=== PATIENT | female | born 1955 | race Two or more races ===

== ENCOUNTER 2021-12-15 17:21 | Inpatient (IN) | payer MEDICARE ==
[~2021-12-15] VITALS: Ht 149.9 cm; Wt 50.8 kg
[2021-12-15 19:01] LABS: BASOPHILS % (AUTO) 0.4 % (0.0-2.0); EOSINOPHILS % (AUTO) 0.3 % (1.0-6.0); HEMATOCRIT 32.9 % (36-46); HEMOGLOBIN 10.9 g/dL (12.0-16.0); LYMPHOCYTES # (AUTO) 1.2 K/uL (1.0-4.8); LYMPHOCYTES % (AUTO) 9.5 % (22.0-44.0); MEAN CORPUSCULAR HEMOGLOBIN 30.5 pg (26.0-34.0); MEAN CORPUSCULAR HGB CONC 33.3 G/dL (31.0-37.0); MEAN CORPUSCULAR VOLUME 92 fL (80-100); MONOCYTES # (AUTO) 0.5 K/uL (0.1-1.0); MONOCYTES % (AUTO) 4.3 % (2.0-9.0); NEUTROPHILS # (AUTO) 10.6 K/uL (1.8-7.7); PLATELET COUNT (AUTO) 374 K/uL (150-450); RED BLOOD CELL COUNT(AUTO) 3.58 MIL/uL (4.00-5.20); RED CELL DISTRIBUTION WIDTH 14.2 % (11.5-14.5)
[2021-12-15 19:03] LABS: NEUTROPHILS % (AUTO) 85.5 % (40.0-70.0)
[2021-12-15 19:18] LABS: ALANINE AMINOTRANSFERASE 16 U/L (12-78); ALBUMIN 1.9 g/dL (3.4-5.0); ALKALINE PHOSPHATASE 122 U/L (46-116); ASPARTATE AMINOTRANSFERASE 41 U/L (15-37); BILIRUBIN,TOTAL 0.7 mg/dL (0.1-1.0); CALCIUM, TOTAL 8.7 mg/dL (8.8-10.5); CARBON DIOXIDE 25 mmol/L (22-29); CREATININE 1.02 mg/dL (0.60-1.30); LIPASE 77 U/L (73-393); TOTAL PROTEIN, SERUM 7.9 g/dL (6.4-8.2); UREA NITROGEN, BLOOD 28 mg/dL (7-18)
[2021-12-15 19:31] LABS: ANION GAP 9 mmol/L (8-16); CHLORIDE 90 mmol/L (98-107)
[2021-12-15 19:38] LABS: SODIUM SERUM 124 mmol/L (136-145)
[2021-12-15 19:39] LABS: GLOMERULAR FILTR. RATE CALC 54 mL/min (>60); GLUCOSE,RANDOM 448 mg/dL (70-110); POTASSIUM 2.3 mmol/L (3.5-5.1)
[2021-12-15] MEDS ORDERED: POTASSIUM CHL 10 MEQ/WATER 50 ML IV ONE (20:00)
[2021-12-15] MEDS ORDERED: SODIUM CHLORIDE 0.9% 1,000 ML IV ONE (20:00)
[2021-12-15] MEDS ORDERED: POTASSIUM CHLORIDE 10% 40 MEQ/30 ML LIQUID UDCUP PO ONE (20:00)
[2021-12-15] MEDS ORDERED: CefTRIAXone 1 GM/DEXTROSE 50 ML IV ONE (20:15)
[2021-12-15 20:22] LABS: LACTIC ACID 2.1 mmol/L (0.4-2.0)
[2021-12-15 22:54] LABS: ABG BASE EXCESS -4.1 mmol/L (-2.0-3.0); ABG CARBOXYHEMOGLOBIN 0.4 % (0.0-1.5); ABG HCO3 21.7 mmol/L (22.0-26.0); ABG METHEMOGLOBIN 0.3 % (0.0-1.5); ABG OXYGEN CONTENT 13.6 mL/dL (15.0-23.0); ABG OXYGEN SATURATION 96.5 % (95.0-98.0); ABG OXYHEMOGLOBIN 95.8 % (94.0-100.0); ABG PCO2 31 mmHg (35-45); ABG PH 7.436 (7.35-7.450); PO2, ARTERIAL BG 84.6 mmHg (79.0-87.0); SOURCE, BLOOD GAS ARTERIAL; TEMPERATURE, FAHRENHEIT, BG 98.6 FAHREN (96.0-98.6)
[2021-12-15 22:55] LABS: ABG A-A DIFF O2 28.5 mmHg (10-20.0); O2 DEVICE,BLOOD GAS ROOM AIR (ROOM AIR); SITE, BLOOD GAS RT RADIAL
[2021-12-16] MEDS ORDERED: INSULIN GLARGINE,HUM.REC.ANLOG 100 UNITS/ML SQ ONE
[2021-12-16] MEDS ORDERED: MAGNESIUM OXIDE 400 MG TABLET PO PRN
[2021-12-16] MEDS ORDERED: ZOLPIDEM TARTRATE 5 MG TABLET PO PRN
[2021-12-16] MEDS ORDERED: BISACODYL 10 MG RECTAL RECTAL SUPPOSITORY PR PRN
[2021-12-16] MEDS ORDERED: MORPHINE SULFATE 2 MG/ML SYRINGE IVP PRN
[2021-12-16] MEDS ORDERED: HYDROCODONE/ACETAMINOPHEN 5-325 MG TABLET PO PRN
[2021-12-16] MEDS ORDERED: ALBUTEROL SULFATE 2.5 MG/0.5 ML NEB SOLUTION NEB PRN
[2021-12-16] MEDS ORDERED: MAGNESIUM SULFATE 2 GM/WATER 50 ML IV PRN
[2021-12-16] MEDS ORDERED: DEXTROSE 50%-WATER 25 GM/50 ML SYRINGE IVP PRN
[2021-12-16] MEDS ORDERED: MAGNESIUM HYDROXIDE SUSPENSION 30 ML UDCUP PO PRN
[2021-12-16] MEDS ORDERED: IPRATROPIUM BROMIDE 0.5 MG/2.5 ML NEB SOLUTION NEB PRN
[2021-12-16] MEDS ORDERED: MAGNESIUM SULFATE 4 GM/WATER 100 ML IV PRN
[2021-12-16] MEDS ORDERED: ONDANSETRON HCL 4 MG/2 ML VIAL IVP PRN
[2021-12-16] MEDS ORDERED: SODIUM CHLORIDE 0.9% 100 ML ONE (00:03)
[2021-12-16] MEDS ORDERED: IOHEXOL 350 MG/ML 100 ML VIAL ONE (00:03)
[2021-12-16 00:11] LABS: GLUCOSE,POINT OF CARE 436 MG/DL (70-110)
[2021-12-16 00:19] LABS: HEMOGLOBIN A1C 12.4 % (3.8-5.6)
[2021-12-16] MEDS: INSULIN LISPRO 100 UNITS/ML SQ PRN ×5 (00:32→22:23)
[2021-12-16 00:50] LABS: ALBUMIN 1.9 g/dL (3.4-5.0)
[2021-12-16] MEDS: HEPARIN SODIUM,PORCINE 5,000 UNITS/ML VIAL SQ SCH ×4 (01:00→23:24)
[2021-12-16 04:31] LABS: GLUCOMETER DEV NAME(LOC) ERT.5; GLUCOSE,POINT OF CARE 147 MG/DL (70-110)
[2021-12-16 06:07] LABS: GLUCOMETER DEV NAME(LOC) ERT.5; GLUCOSE,POINT OF CARE 147 MG/DL (70-110)
[2021-12-16] MEDS: PANTOPRAZOLE SODIUM 40 MG DR TABLET PO SCH (07:57)
[2021-12-16 08:01] LABS: ANION GAP 10 mmol/L (8-16); CALCIUM, TOTAL 7.8 mg/dL (8.8-10.5); CARBON DIOXIDE 26 mmol/L (22-29); CHLORIDE 96 mmol/L (98-107); CREATININE 0.75 mg/dL (0.60-1.30); GLUCOSE,RANDOM 177 mg/dL (70-110); SODIUM SERUM 132 mmol/L (136-145); UREA NITROGEN, BLOOD 25 mg/dL (7-18)
[2021-12-16 08:03] LABS: GLOMERULAR FILTR. RATE CALC > 60 mL/min (>60); POTASSIUM 2.2 mmol/L (3.5-5.1)
[2021-12-16] MEDS: POTASSIUM CHL 10 MEQ/WATER 50 ML IV PRN ×4 (08:08→10:58)
[2021-12-16] MEDS ORDERED: POTASSIUM CHLORIDE 20 MEQ ER TABLET PO ONE (11:45)
[2021-12-16 12:21] LABS: GLUCOSE,POINT OF CARE 191 MG/DL (70-110)
[2021-12-16 15:56] LABS: ANION GAP 9 mmol/L (8-16); CALCIUM, TOTAL 7.6 mg/dL (8.8-10.5); CARBON DIOXIDE 22 mmol/L (22-29); CHLORIDE 101 mmol/L (98-107); CREATININE 0.71 mg/dL (0.60-1.30); GLOMERULAR FILTR. RATE CALC > 60 mL/min (>60); GLUCOSE,RANDOM 190 mg/dL (70-110); SODIUM SERUM 132 mmol/L (136-145); UREA NITROGEN, BLOOD 18 mg/dL (7-18)
[2021-12-16 21:54] VITALS: BP 103/48
[2021-12-16] MEDS: POTASSIUM CHLORIDE 20 MEQ ER TABLET PO PRN (21:58)
[2021-12-16 22:55] LABS: APPEARANCE,URINE HAZY (CLEAR); BILIRUBIN,URINE NEGATIVE (NEGATIVE); GLUCOSE, URINE (UA) 150-200 mg/dL (NEGATIVE); KETONES,URINE TRACE mg/dL (NEGATIVE); LEUKOCYTE ESTERASE ,URINE LARGE (NEGATIVE); NITRATE,URINE NEGATIVE (NEGATIVE); OCCULT BLOOD,URINE TRACE (NEGATIVE); PH,URINE 5.5 (5.0-8.0); PROTEIN,URINE 30-70 mg/dL (NEGATIVE); UROBILINOGEN,URINE <=1.0 mg/dL (<=1.0)
[2021-12-16 23:38] VITALS: BP 100/50
[2021-12-16 23:49] LABS: SQUAMOUS EPITHELIAL CELL,UR Few /LPF (None Seen)
[2021-12-16 23:50] LABS: BACTERIA,URINE Few /HPF (None Seen); RBC,URINE 0-2 /HPF (0-2); WBC,URINE 26-50 /HPF (0-5)
[2021-12-17 03:36] VITALS: BP 118/51
[2021-12-17] MEDS: INSULIN LISPRO 100 UNITS/ML SQ PRN ×4 (06:13→20:21)
[2021-12-17 07:19] LABS: BASOPHILS % (AUTO) 0.5 % (0.0-2.0); HEMOGLOBIN 8.8 g/dL (12.0-16.0); LYMPHOCYTES # (AUTO) 1.7 K/uL (1.0-4.8); LYMPHOCYTES % (AUTO) 13.8 % (22.0-44.0); MEAN CORPUSCULAR HEMOGLOBIN 29.8 pg (26.0-34.0); MEAN CORPUSCULAR HGB CONC 32.8 G/dL (31.0-37.0); MEAN CORPUSCULAR VOLUME 91 fL (80-100); MONOCYTES # (AUTO) 0.5 K/uL (0.1-1.0); MONOCYTES % (AUTO) 4.5 % (2.0-9.0); NEUTROPHILS # (AUTO) 9.7 K/uL (1.8-7.7); NEUTROPHILS % (AUTO) 80.2 % (40.0-70.0); PLATELET COUNT (AUTO) 318 K/uL (150-450); RED BLOOD CELL COUNT(AUTO) 2.97 MIL/uL (4.00-5.20); RED CELL DISTRIBUTION WIDTH 14.3 % (11.5-14.5)
[2021-12-17 07:38] LABS: ALANINE AMINOTRANSFERASE 21 U/L (12-78); ALBUMIN 1.5 g/dL (3.4-5.0); ALKALINE PHOSPHATASE 86 U/L (46-116); ANION GAP 11 mmol/L (8-16); ASPARTATE AMINOTRANSFERASE 38 U/L (15-37); BILIRUBIN,TOTAL 0.4 mg/dL (0.1-1.0); CALCIUM, TOTAL 7.6 mg/dL (8.8-10.5); CARBON DIOXIDE 22 mmol/L (22-29); CHLORIDE 102 mmol/L (98-107); CREATININE 0.73 mg/dL (0.60-1.30); GLUCOSE,RANDOM 180 mg/dL (70-110); SODIUM SERUM 135 mmol/L (136-145); TOTAL PROTEIN, SERUM 6.2 g/dL (6.4-8.2); UREA NITROGEN, BLOOD 16 mg/dL (7-18)
[2021-12-17 07:40] LABS: GLOMERULAR FILTR. RATE CALC > 60 mL/min (>60); POTASSIUM 2.8 mmol/L (3.5-5.1)
[2021-12-17 08:00] VITALS: BP 101/45
[2021-12-17] MEDS: PANTOPRAZOLE SODIUM 40 MG DR TABLET PO SCH (09:05)
[2021-12-17] MEDS: HEPARIN SODIUM,PORCINE 5,000 UNITS/ML VIAL SQ SCH ×3 (09:06→23:58)
[2021-12-17] MEDS: ACETAMINOPHEN 325 MG TABLET PO PRN ×2 (09:06→17:53)
[2021-12-17] MEDS: POTASSIUM CHL 10 MEQ/WATER 50 ML IV PRN (09:07)
[2021-12-17 11:05] VITALS: BP 102/52
[2021-12-17] MEDS ORDERED: POTASSIUM CHLORIDE 20 MEQ ER TABLET PO ONE (12:00)
[2021-12-17 12:49] LABS: GLUCOMETER DEV NAME(LOC) 5S.1B; GLUCOSE,POINT OF CARE 150 MG/DL (70-110)
[2021-12-17 15:43] VITALS: BP 105/58
[2021-12-17 20:30] VITALS: BP 98/49
[2021-12-18 00:27] VITALS: BP 118/52
[2021-12-18] MEDS ORDERED: CefTRIAXone 1 GM/DEXTROSE 50 ML IV SCH (00:30)
[2021-12-18 04:15] VITALS: BP 105/53
[2021-12-18] MEDS: INSULIN LISPRO 100 UNITS/ML SQ PRN ×4 (06:20→21:04)
[2021-12-18 06:54] LABS: BASOPHILS % (AUTO) 0.3 % (0.0-2.0); EOSINOPHILS % (AUTO) 0.2 % (1.0-6.0); LYMPHOCYTES # (AUTO) 1.2 K/uL (1.0-4.8); LYMPHOCYTES % (AUTO) 8.4 % (22.0-44.0); MEAN CORPUSCULAR HEMOGLOBIN 29.8 pg (26.0-34.0); MEAN CORPUSCULAR HGB CONC 32.2 G/dL (31.0-37.0); MEAN CORPUSCULAR VOLUME 93 fL (80-100); MONOCYTES # (AUTO) 0.4 K/uL (0.1-1.0); MONOCYTES % (AUTO) 2.6 % (2.0-9.0); NEUTROPHILS # (AUTO) 12.6 K/uL (1.8-7.7); PLATELET COUNT (AUTO) 391 K/uL (150-450); RED BLOOD CELL COUNT(AUTO) 3.36 MIL/uL (4.00-5.20); RED CELL DISTRIBUTION WIDTH 14.6 % (11.5-14.5)
[2021-12-18 07:23] LABS: NEUTROPHILS % (AUTO) 88.5 % (40.0-70.0)
[2021-12-18 07:29] LABS: ALANINE AMINOTRANSFERASE 16 U/L (12-78); ALBUMIN 1.6 g/dL (3.4-5.0); ALKALINE PHOSPHATASE 101 U/L (46-116); ANION GAP 8 mmol/L (8-16); ASPARTATE AMINOTRANSFERASE 30 U/L (15-37); BILIRUBIN,TOTAL 0.3 mg/dL (0.1-1.0); CALCIUM, TOTAL 7.9 mg/dL (8.8-10.5); CARBON DIOXIDE 24 mmol/L (22-29); CHLORIDE 102 mmol/L (98-107); CREATININE 0.75 mg/dL (0.60-1.30); GLUCOSE,RANDOM 236 mg/dL (70-110); POTASSIUM 3.6 mmol/L (3.5-5.1); SODIUM SERUM 134 mmol/L (136-145); TOTAL PROTEIN, SERUM 6.8 g/dL (6.4-8.2); UREA NITROGEN, BLOOD 10 mg/dL (7-18)
[2021-12-18 07:35] LABS: GLOMERULAR FILTR. RATE CALC > 60 mL/min (>60)
[2021-12-18 07:45] VITALS: BP 104/55
[2021-12-18] MEDS: PANTOPRAZOLE SODIUM 40 MG DR TABLET PO SCH (08:14)
[2021-12-18] MEDS: HEPARIN SODIUM,PORCINE 5,000 UNITS/ML VIAL SQ SCH ×3 (08:14→23:44)
[2021-12-18 11:08] VITALS: BP 108/44
[2021-12-18 15:33] VITALS: BP 129/48
[2021-12-18 17:24] LABS: GLUCOMETER DEV NAME(LOC) 5N.1C; GLUCOSE,POINT OF CARE 188 MG/DL (70-110)
[2021-12-18 17:24] LABS: GLUCOMETER DEV NAME(LOC) 5N.1C; GLUCOSE,POINT OF CARE 281 MG/DL (70-110)
[2021-12-18 17:25] LABS: GLUCOMETER DEV NAME(LOC) 5N.1C; GLUCOSE,POINT OF CARE 218 MG/DL (70-110)
[2021-12-18 20:35] VITALS: BP 97/54
[2021-12-18] MEDS: PIPERACILLIN/TAZO 3.375 GM/D5W 50 ML IV SCH (23:15)
[2021-12-19] MEDS ORDERED: VANCOMYCIN HCL 1 GM in DEXTROSE 5%-WATER 250 ML IV ONE ×2
[2021-12-19 00:25] VITALS: BP 101/54
[2021-12-19] MEDS: PIPERACILLIN/TAZO 3.375 GM/D5W 50 ML IV SCH ×4 (04:43→22:34)
[2021-12-19] MEDS: INSULIN LISPRO 100 UNITS/ML SQ PRN ×4 (06:24→21:27)
[2021-12-19 07:25] LABS: BASOPHILS % (AUTO) 0.2 % (0.0-2.0); EOSINOPHILS % (AUTO) 1.1 % (1.0-6.0); HEMOGLOBIN 9.3 g/dL (12.0-16.0); LYMPHOCYTES # (AUTO) 1.7 K/uL (1.0-4.8); LYMPHOCYTES % (AUTO) 18.2 % (22.0-44.0); MEAN CORPUSCULAR HEMOGLOBIN 30.7 pg (26.0-34.0); MEAN CORPUSCULAR HGB CONC 33.4 G/dL (31.0-37.0); MEAN CORPUSCULAR VOLUME 92 fL (80-100); MONOCYTES # (AUTO) 0.5 K/uL (0.1-1.0); NEUTROPHILS # (AUTO) 7.3 K/uL (1.8-7.7); NEUTROPHILS % (AUTO) 75.5 % (40.0-70.0); PLATELET COUNT (AUTO) 323 K/uL (150-450); RED BLOOD CELL COUNT(AUTO) 3.04 MIL/uL (4.00-5.20); RED CELL DISTRIBUTION WIDTH 14.8 % (11.5-14.5)
[2021-12-19 08:00] VITALS: BP 98/45
[2021-12-19 08:05] LABS: ALANINE AMINOTRANSFERASE 15 U/L (12-78); ALBUMIN 1.5 g/dL (3.4-5.0); ALKALINE PHOSPHATASE 86 U/L (46-116); ANION GAP 9 mmol/L (8-16); ASPARTATE AMINOTRANSFERASE 21 U/L (15-37); BILIRUBIN,TOTAL 0.4 mg/dL (0.1-1.0); CALCIUM, TOTAL 7.8 mg/dL (8.8-10.5); CARBON DIOXIDE 24 mmol/L (22-29); CHLORIDE 102 mmol/L (98-107); CREATININE 0.74 mg/dL (0.60-1.30); GLUCOSE,RANDOM 177 mg/dL (70-110); POTASSIUM 3.5 mmol/L (3.5-5.1); SODIUM SERUM 135 mmol/L (136-145); TOTAL PROTEIN, SERUM 6.4 g/dL (6.4-8.2); UREA NITROGEN, BLOOD 8 mg/dL (7-18)
[2021-12-19 08:06] LABS: GLOMERULAR FILTR. RATE CALC > 60 mL/min (>60)
[2021-12-19] MEDS: PANTOPRAZOLE SODIUM 40 MG DR TABLET PO SCH (08:33)
[2021-12-19] MEDS: HEPARIN SODIUM,PORCINE 5,000 UNITS/ML VIAL SQ SCH ×2 (08:33→17:40)
[2021-12-19] MEDS: VANCOMYCIN HCL 750 MG in DEXTROSE 5%-WATER 250 ML IV SCH ×2 (08:34→21:01)
[2021-12-19 12:01] VITALS: BP 107/53
[2021-12-19 16:14] VITALS: BP 120/52
[2021-12-19 20:54] VITALS: BP 109/57
[2021-12-20] MEDS: HEPARIN SODIUM,PORCINE 5,000 UNITS/ML VIAL SQ SCH ×4 (00:03→23:31)
[2021-12-20 00:49] VITALS: BP 94/58
[2021-12-20] MEDS: PIPERACILLIN/TAZO 3.375 GM/D5W 50 ML IV SCH ×4 (05:15→23:33)
[2021-12-20] MEDS ORDERED: SODIUM CHLORIDE 0.9% 500 ML IV ONE (05:24)
[2021-12-20 05:34] LABS: GLUCOMETER DEV NAME(LOC) 5N.3; GLUCOSE,POINT OF CARE 218 MG/DL (70-110)
[2021-12-20 05:34] LABS: GLUCOMETER DEV NAME(LOC) 5N.3; GLUCOSE,POINT OF CARE 232 MG/DL (70-110)
[2021-12-20 05:35] LABS: GLUCOMETER DEV NAME(LOC) 5S.2B; GLUCOSE,POINT OF CARE 235 MG/DL (70-110)
[2021-12-20 05:35] LABS: GLUCOMETER DEV NAME(LOC) 5S.2B; GLUCOSE,POINT OF CARE 283 MG/DL (70-110)
[2021-12-20 05:35] LABS: GLUCOMETER DEV NAME(LOC) 5S.2B; GLUCOSE,POINT OF CARE 213 MG/DL (70-110)
[2021-12-20 05:36] LABS: GLUCOMETER DEV NAME(LOC) 5S.2B; GLUCOSE,POINT OF CARE 179 MG/DL (70-110)
[2021-12-20 05:36] LABS: GLUCOMETER DEV NAME(LOC) 5S.2B; GLUCOSE,POINT OF CARE 324 MG/DL (70-110)
[2021-12-20 05:36] LABS: GLUCOMETER DEV NAME(LOC) 5S.2B; GLUCOSE,POINT OF CARE 270 MG/DL (70-110)
[2021-12-20 06:03] VITALS: BP 108/49
[2021-12-20 06:27] LABS: GLUCOMETER DEV NAME(LOC) 5S.1B; GLUCOSE,POINT OF CARE 214 MG/DL (70-110)
[2021-12-20 06:27] LABS: GLUCOMETER DEV NAME(LOC) 5S.1B; GLUCOSE,POINT OF CARE 222 MG/DL (70-110)
[2021-12-20 07:12] LABS: BASOPHILS % (AUTO) 0.3 % (0.0-2.0); EOSINOPHILS % (AUTO) 1.3 % (1.0-6.0); HEMATOCRIT 27.8 % (36-46); HEMOGLOBIN 9.2 g/dL (12.0-16.0); LYMPHOCYTES # (AUTO) 1.6 K/uL (1.0-4.8); LYMPHOCYTES % (AUTO) 18.8 % (22.0-44.0); MEAN CORPUSCULAR HEMOGLOBIN 30.7 pg (26.0-34.0); MEAN CORPUSCULAR HGB CONC 33.3 G/dL (31.0-37.0); MEAN CORPUSCULAR VOLUME 92 fL (80-100); MONOCYTES # (AUTO) 0.4 K/uL (0.1-1.0); NEUTROPHILS # (AUTO) 6.5 K/uL (1.8-7.7); NEUTROPHILS % (AUTO) 74.6 % (40.0-70.0); PLATELET COUNT (AUTO) 284 K/uL (150-450); RED BLOOD CELL COUNT(AUTO) 3.01 MIL/uL (4.00-5.20); RED CELL DISTRIBUTION WIDTH 14.5 % (11.5-14.5)
[2021-12-20 07:56] LABS: ALANINE AMINOTRANSFERASE 12 U/L (12-78); ALBUMIN 1.5 g/dL (3.4-5.0); ALKALINE PHOSPHATASE 76 U/L (46-116); ANION GAP 9 mmol/L (8-16); ASPARTATE AMINOTRANSFERASE 19 U/L (15-37); BILIRUBIN,TOTAL 0.4 mg/dL (0.1-1.0); CALCIUM, TOTAL 7.6 mg/dL (8.8-10.5); CARBON DIOXIDE 24 mmol/L (22-29); CHLORIDE 99 mmol/L (98-107); CREATINE KINASE, TOTAL ONLY 22 U/L (26-192); CREATININE 0.89 mg/dL (0.60-1.30); GLOMERULAR FILTR. RATE CALC > 60 mL/min (>60); GLUCOSE,RANDOM 201 mg/dL (70-110); POTASSIUM 3.3 mmol/L (3.5-5.1); SODIUM SERUM 132 mmol/L (136-145); TOTAL PROTEIN, SERUM 6.5 g/dL (6.4-8.2); UREA NITROGEN, BLOOD 9 mg/dL (7-18); VANCOMYCIN,RANDOM 24.7 mcg/mL (25.0-50.0)
[2021-12-20] MEDS: VANCOMYCIN HCL 750 MG in DEXTROSE 5%-WATER 250 ML IV SCH ×2 (08:23→20:47)
[2021-12-20] MEDS: PANTOPRAZOLE SODIUM 40 MG DR TABLET PO SCH (08:23)
[2021-12-20] MEDS: POTASSIUM CHLORIDE 20 MEQ ER TABLET PO PRN (08:24)
[2021-12-20] MEDS: INSULIN GLARGINE,HUM.REC.ANLOG 100 UNITS/ML SQ SCH (08:27)
[2021-12-20 08:48] VITALS: BP 105/52
[2021-12-20] MEDS: INSULIN LISPRO 100 UNITS/ML SQ PRN ×3 (11:55→20:58)
[2021-12-20 12:00] VITALS: BP 110/52
[2021-12-20 16:40] VITALS: BP 105/56
[2021-12-20 19:21] LABS: GLUCOMETER DEV NAME(LOC) 5S.2B; GLUCOSE,POINT OF CARE 285 MG/DL (70-110)
[2021-12-20 20:48] VITALS: BP 101/48
[2021-12-21] VITALS (8 sets, daily range): BP systolic 74–111; BP diastolic 37–67
[2021-12-21] MEDS: PIPERACILLIN/TAZO 3.375 GM/D5W 50 ML IV SCH ×4 (05:27→23:08)
[2021-12-21 06:50] LABS: BASOPHILS % (AUTO) 0.3 % (0.0-2.0); HEMATOCRIT 28.6 % (36-46); HEMOGLOBIN 9.3 g/dL (12.0-16.0); LYMPHOCYTES # (AUTO) 2.1 K/uL (1.0-4.8); LYMPHOCYTES % (AUTO) 21.3 % (22.0-44.0); MEAN CORPUSCULAR HEMOGLOBIN 30.7 pg (26.0-34.0); MEAN CORPUSCULAR HGB CONC 32.7 G/dL (31.0-37.0); MEAN CORPUSCULAR VOLUME 94 fL (80-100); MONOCYTES # (AUTO) 0.5 K/uL (0.1-1.0); MONOCYTES % (AUTO) 4.9 % (2.0-9.0); NEUTROPHILS # (AUTO) 7.1 K/uL (1.8-7.7); NEUTROPHILS % (AUTO) 72.5 % (40.0-70.0); PLATELET COUNT (AUTO) 316 K/uL (150-450); RED BLOOD CELL COUNT(AUTO) 3.04 MIL/uL (4.00-5.20); RED CELL DISTRIBUTION WIDTH 14.6 % (11.5-14.5)
[2021-12-21 07:06] LABS: GLUCOMETER DEV NAME(LOC) 5S.1B; GLUCOSE,POINT OF CARE 208 MG/DL (70-110)
[2021-12-21 07:07] LABS: GLUCOMETER DEV NAME(LOC) 5S.1B; GLUCOSE,POINT OF CARE 129 MG/DL (70-110)
[2021-12-21 07:07] LABS: GLUCOMETER DEV NAME(LOC) 5S.1B; GLUCOSE,POINT OF CARE 167 MG/DL (70-110)
[2021-12-21 07:14] LABS: ALBUMIN 1.5 g/dL (3.4-5.0); BILIRUBIN,TOTAL 0.6 mg/dL (0.1-1.0); CALCIUM, TOTAL 8.2 mg/dL (8.8-10.5); CREATININE 1.23 mg/dL (0.60-1.30); POTASSIUM 3.8 mmol/L (3.5-5.1); TOTAL PROTEIN, SERUM 6.9 g/dL (6.4-8.2)
[2021-12-21] MEDS: VANCOMYCIN HCL 500 MG in DEXTROSE 5%-WATER 100 ML IV SCH ×2 (08:05→20:47)
[2021-12-21] MEDS: HEPARIN SODIUM,PORCINE 5,000 UNITS/ML VIAL SQ SCH ×2 (08:06→16:09)
[2021-12-21] MEDS: PANTOPRAZOLE SODIUM 40 MG DR TABLET PO SCH (08:06)
[2021-12-21] MEDS: INSULIN GLARGINE,HUM.REC.ANLOG 100 UNITS/ML SQ SCH (08:07)
[2021-12-21] MEDS: INSULIN LISPRO 100 UNITS/ML SQ PRN ×2 (11:50→17:08)
[2021-12-21 12:41] LABS: GLUCOMETER DEV NAME(LOC) 5S.1B; GLUCOSE,POINT OF CARE 243 MG/DL (70-110)
[2021-12-21 17:51] LABS: GLUCOMETER DEV NAME(LOC) 5S.2B; GLUCOSE,POINT OF CARE 175 MG/DL (70-110)
[2021-12-21] MEDS ORDERED: SODIUM CHLORIDE 0.9% 250 ML IV ONE (20:41)
[2021-12-21] MEDS ORDERED: SODIUM CHLORIDE 0.9% 500 ML IV STA (22:00)
[2021-12-21] MEDS ORDERED: CLINDAMYCIN 600 MG/D5% WATER 50 ML IV ONE (22:30)
[2021-12-22] VITALS (7 sets, daily range): BP systolic 93–117; BP diastolic 52–57
[2021-12-22] MEDS: HEPARIN SODIUM,PORCINE 5,000 UNITS/ML VIAL SQ SCH ×4 (00:03→23:27)
[2021-12-22 03:11] LABS: GLUCOMETER DEV NAME(LOC) 5S.1B; GLUCOSE,POINT OF CARE 135 MG/DL (70-110)
[2021-12-22] MEDS: PIPERACILLIN/TAZO 3.375 GM/D5W 50 ML IV SCH (04:33)
[2021-12-22 06:32] LABS: BASOPHILS % (AUTO) 0.5 % (0.0-2.0); HEMATOCRIT 28.4 % (36-46); HEMOGLOBIN 9.3 g/dL (12.0-16.0); LYMPHOCYTES # (AUTO) 1.8 K/uL (1.0-4.8); LYMPHOCYTES % (AUTO) 24.4 % (22.0-44.0); MEAN CORPUSCULAR HEMOGLOBIN 30.7 pg (26.0-34.0); MEAN CORPUSCULAR HGB CONC 32.8 G/dL (31.0-37.0); MEAN CORPUSCULAR VOLUME 94 fL (80-100); MONOCYTES # (AUTO) 0.4 K/uL (0.1-1.0); MONOCYTES % (AUTO) 5.6 % (2.0-9.0); NEUTROPHILS # (AUTO) 5.1 K/uL (1.8-7.7); NEUTROPHILS % (AUTO) 67.5 % (40.0-70.0); PLATELET COUNT (AUTO) 293 K/uL (150-450); RED BLOOD CELL COUNT(AUTO) 3.04 MIL/uL (4.00-5.20); RED CELL DISTRIBUTION WIDTH 15.1 % (11.5-14.5)
[2021-12-22 06:59] LABS: ALBUMIN 1.6 g/dL (3.4-5.0); BILIRUBIN,TOTAL 0.5 mg/dL (0.1-1.0); CREATININE 1.76 mg/dL (0.60-1.30); TOTAL PROTEIN, SERUM 7.1 g/dL (6.4-8.2); VANCOMYCIN,RANDOM 40.2 mcg/mL (25.0-50.0)
[2021-12-22] MEDS: PANTOPRAZOLE SODIUM 40 MG DR TABLET PO SCH (08:17)
[2021-12-22] MEDS: VANCOMYCIN HCL 500 MG in DEXTROSE 5%-WATER 100 ML IV SCH (08:17)
[2021-12-22] MEDS: POTASSIUM CHLORIDE 20 MEQ ER TABLET PO PRN (08:18)
[2021-12-22] MEDS: INSULIN GLARGINE,HUM.REC.ANLOG 100 UNITS/ML SQ SCH (08:27)
[2021-12-22] MEDS ORDERED: VANCOMYCIN 1GM/WATER(PEG/NADA) 200 ML IV PRN (09:30)
[2021-12-22] MEDS: PIPERACILLIN SODIUM/TAZOBACTAM 2.25 GM in DEXTROSE 5%-WATER 50 ML IV SCH ×3 (11:57→23:27)
[2021-12-22] MEDS: INSULIN LISPRO 100 UNITS/ML SQ PRN ×3 (12:18→20:07)
[2021-12-22] MEDS: LACTOBACILLUS ACIDOPHILUS/BULGARICUS GRANULES PACKET PO SCH ×2 (17:06→20:03)
[2021-12-22 17:32] LABS: GLUCOMETER DEV NAME(LOC) 5S.2B; GLUCOSE,POINT OF CARE 184 MG/DL (70-110)
[2021-12-22 17:32] LABS: GLUCOMETER DEV NAME(LOC) 5S.2B; GLUCOSE,POINT OF CARE 204 MG/DL (70-110)
[2021-12-22 20:11] LABS: GLUCOMETER DEV NAME(LOC) 5S.1B; GLUCOSE,POINT OF CARE 108 MG/DL (70-110)
[2021-12-22 20:26] LABS: GLUCOMETER DEV NAME(LOC) 5S.2B; GLUCOSE,POINT OF CARE 169 MG/DL (70-110)
[2021-12-23 03:52] VITALS: BP 103/53
[2021-12-23] MEDS: PIPERACILLIN SODIUM/TAZOBACTAM 2.25 GM in DEXTROSE 5%-WATER 50 ML IV SCH ×4 (05:09→23:37)
[2021-12-23 07:08] LABS: BASOPHILS % (AUTO) 0.3 % (0.0-2.0); HEMATOCRIT 29.7 % (36-46); HEMOGLOBIN 9.8 g/dL (12.0-16.0); LYMPHOCYTES # (AUTO) 2.2 K/uL (1.0-4.8); LYMPHOCYTES % (AUTO) 26.5 % (22.0-44.0); MEAN CORPUSCULAR HEMOGLOBIN 30.8 pg (26.0-34.0); MEAN CORPUSCULAR HGB CONC 32.9 G/dL (31.0-37.0); MEAN CORPUSCULAR VOLUME 94 fL (80-100); MONOCYTES # (AUTO) 0.5 K/uL (0.1-1.0); MONOCYTES % (AUTO) 5.9 % (2.0-9.0); NEUTROPHILS # (AUTO) 5.4 K/uL (1.8-7.7); NEUTROPHILS % (AUTO) 66.3 % (40.0-70.0); PLATELET COUNT (AUTO) 303 K/uL (150-450); RED BLOOD CELL COUNT(AUTO) 3.17 MIL/uL (4.00-5.20)
[2021-12-23 07:23] VITALS: BP 122/52
[2021-12-23 07:33] LABS: ALBUMIN 1.7 g/dL (3.4-5.0); BILIRUBIN,TOTAL 0.4 mg/dL (0.1-1.0); CALCIUM, TOTAL 8.4 mg/dL (8.8-10.5); CREATININE 1.76 mg/dL (0.60-1.30); POTASSIUM 3.8 mmol/L (3.5-5.1); TOTAL PROTEIN, SERUM 7.2 g/dL (6.4-8.2)
[2021-12-23 07:35] LABS: COVID AG,FIA SOURCE NASAL SWAB
[2021-12-23] MEDS: HEPARIN SODIUM,PORCINE 5,000 UNITS/ML VIAL SQ SCH ×3 (08:00→23:39)
[2021-12-23] MEDS: LACTOBACILLUS ACIDOPHILUS/BULGARICUS GRANULES PACKET PO SCH ×3 (08:05→21:03)
[2021-12-23] MEDS: PANTOPRAZOLE SODIUM 40 MG DR TABLET PO SCH (08:06)
[2021-12-23] MEDS: INSULIN GLARGINE,HUM.REC.ANLOG 100 UNITS/ML SQ SCH (08:09)
[2021-12-23] MEDS ORDERED: SODIUM CL IRRIG SOLN BAG 3,000 ML IRRIG ONE (08:14)
[2021-12-23] MEDS ORDERED: VANCOMYCIN HCL 1 GM/VIAL ONE ×2 (08:14→09:34)
[2021-12-23] MEDS ORDERED: SODIUM CHLORIDE 0.9% 1,000 ML ONE (08:38)
[2021-12-23] MEDS ORDERED: HYDROmorphone HCL 2 MG/ML SYRINGE IVP PRN (09:15)
[2021-12-23] MEDS ORDERED: SODIUM CL IRRIG SOLN BAG 6,000 ML IRRIG ONE (09:34)
[2021-12-23] MEDS ORDERED: SUGAMMADEX SODIUM 200 MG/2 ML VIAL IVP ONE (09:49)
[2021-12-23] MEDS ORDERED: FentaNYL CITRATE PF 100 MCG/2 ML VIAL ONE (10:09)
[2021-12-23] MEDS: FentaNYL CITRATE PF 100 MCG/2 ML VIAL IVP PRN ×2 (10:15→10:25)
[2021-12-23 10:55] VITALS: BP 126/56
[2021-12-23] MEDS ORDERED: LIDOCAINE/PF 2% 5 ML VIAL IM ONE (12:00)
[2021-12-23] MEDS ORDERED: DEXAMETHASONE SOD PHOS 4 MG/ML VIAL IVP ONE (12:00)
[2021-12-23] MEDS ORDERED: PROPOFOL 1% 20 ML VIAL IVP ONE (12:00)
[2021-12-23] MEDS ORDERED: ONDANSETRON HCL 4 MG/2 ML VIAL IVP ONE (12:00)
[2021-12-23] MEDS ORDERED: ROCURONIUM BROMIDE 10 MG/ML 5 ML VIAL IVP ONE (12:00)
[2021-12-23 13:31] LABS: GLUCOMETER DEV NAME(LOC) 6N.2B; GLUCOSE,POINT OF CARE 119 MG/DL (70-110)
[2021-12-23 14:58] LABS: VANCOMYCIN,RANDOM 35.7 mcg/mL (25.0-50.0)
[2021-12-23 15:24] VITALS: BP 122/58
[2021-12-23 17:51] LABS: GLUCOMETER DEV NAME(LOC) 5S.2B; GLUCOSE,POINT OF CARE 79 MG/DL (70-110)
[2021-12-23 19:40] VITALS: BP 119/62
[2021-12-23] MEDS: ACETAMINOPHEN 325 MG TABLET PO PRN (19:58)
[2021-12-23] MEDS: OXYGEN THERAPY IH SCH (20:00)
[2021-12-23] MEDS: INSULIN LISPRO 100 UNITS/ML SQ PRN (20:03)
[2021-12-23 20:21] LABS: GLUCOMETER DEV NAME(LOC) 6N.2B; GLUCOSE,POINT OF CARE 254 MG/DL (70-110)
[2021-12-23 23:21] LABS: GLUCOMETER DEV NAME(LOC) 6N.1; GLUCOSE,POINT OF CARE 146 MG/DL (70-110)
[2021-12-24 04:07] VITALS: BP 109/56
[2021-12-24] MEDS: PIPERACILLIN SODIUM/TAZOBACTAM 2.25 GM in DEXTROSE 5%-WATER 50 ML IV SCH ×4 (04:47→23:32)
[2021-12-24 06:20] LABS: GLUCOMETER DEV NAME(LOC) 6N.1; GLUCOSE,POINT OF CARE 124 MG/DL (70-110)
[2021-12-24 07:13] LABS: CALCIUM, TOTAL 7.7 mg/dL (8.8-10.5); CREATININE 1.72 mg/dL (0.60-1.30); POTASSIUM 4.7 mmol/L (3.5-5.1); VANCOMYCIN,RANDOM 25.4 mcg/mL (25.0-50.0)
[2021-12-24 07:54] VITALS: BP 135/63
[2021-12-24] MEDS: LACTOBACILLUS ACIDOPHILUS/BULGARICUS GRANULES PACKET PO SCH ×3 (08:25→20:01)
[2021-12-24] MEDS: PANTOPRAZOLE SODIUM 40 MG DR TABLET PO SCH (08:26)
[2021-12-24] MEDS: HEPARIN SODIUM,PORCINE 5,000 UNITS/ML VIAL SQ SCH ×3 (08:26→23:32)
[2021-12-24] MEDS: INSULIN GLARGINE,HUM.REC.ANLOG 100 UNITS/ML SQ SCH (08:37)
[2021-12-24] MEDS: INSULIN LISPRO 100 UNITS/ML SQ PRN ×2 (11:22→20:02)
[2021-12-24 11:31] LABS: GLUCOMETER DEV NAME(LOC) 6N.1; GLUCOSE,POINT OF CARE 167 MG/DL (70-110)
[2021-12-24 15:20] VITALS: BP 98/49
[2021-12-24] MEDS ORDERED: SODIUM CHLORIDE 0.9% 1,000 ML ONE (17:30)
[2021-12-24 20:06] LABS: GLUCOMETER DEV NAME(LOC) 6N.2B; GLUCOSE,POINT OF CARE 110 MG/DL (70-110)
[2021-12-24 20:09] VITALS: BP 115/49
[2021-12-24 20:56] LABS: GLUCOMETER DEV NAME(LOC) 6N.1; GLUCOSE,POINT OF CARE 174 MG/DL (70-110)
[2021-12-25 05:00] VITALS: BP 121/56
[2021-12-25] MEDS: PIPERACILLIN SODIUM/TAZOBACTAM 2.25 GM in DEXTROSE 5%-WATER 50 ML IV SCH ×4 (05:38→23:13)
[2021-12-25 07:17] LABS: CALCIUM, TOTAL 7.9 mg/dL (8.8-10.5); CREATININE 1.68 mg/dL (0.60-1.30); POTASSIUM 4.3 mmol/L (3.5-5.1); VANCOMYCIN,RANDOM 16.8 mcg/mL (25.0-50.0)
[2021-12-25 08:04] VITALS: BP 126/60
[2021-12-25] MEDS: LACTOBACILLUS ACIDOPHILUS/BULGARICUS GRANULES PACKET PO SCH ×3 (08:43→20:23)
[2021-12-25] MEDS: PANTOPRAZOLE SODIUM 40 MG DR TABLET PO SCH (08:43)
[2021-12-25] MEDS: HEPARIN SODIUM,PORCINE 5,000 UNITS/ML VIAL SQ SCH ×3 (08:43→23:13)
[2021-12-25] MEDS: MULTIVITAMINS WITH MINERALS, THERAPEUTIC TABLET PO SCH (08:43)
[2021-12-25] MEDS ORDERED: VANCOMYCIN HCL 750 MG in DEXTROSE 5%-WATER 250 ML IV ONE (09:00)
[2021-12-25] MEDS: INSULIN GLARGINE,HUM.REC.ANLOG 100 UNITS/ML SQ SCH (09:02)
[2021-12-25 11:41] LABS: GLUCOMETER DEV NAME(LOC) 6N.1; GLUCOSE,POINT OF CARE 110 MG/DL (70-110)
[2021-12-25] MEDS: INSULIN LISPRO 100 UNITS/ML SQ PRN ×3 (11:55→21:33)
[2021-12-25 14:21] LABS: GLUCOMETER DEV NAME(LOC) 6N.2B; GLUCOSE,POINT OF CARE 225 MG/DL (70-110)
[2021-12-25 15:57] VITALS: BP 122/59
[2021-12-25] MEDS: OXYGEN THERAPY IH SCH (20:00)
[2021-12-25 20:15] VITALS: BP 114/56
[2021-12-25 22:31] LABS: GLUCOMETER DEV NAME(LOC) 6N.1; GLUCOSE,POINT OF CARE 201 MG/DL (70-110)
[2021-12-26] MEDS: PIPERACILLIN SODIUM/TAZOBACTAM 2.25 GM in DEXTROSE 5%-WATER 50 ML IV SCH ×2 (05:23→13:10)
[2021-12-26 05:36] VITALS: BP 133/59
[2021-12-26 05:56] LABS: GLUCOMETER DEV NAME(LOC) 6N.2B; GLUCOSE,POINT OF CARE 116 MG/DL (70-110)
[2021-12-26 05:56] LABS: GLUCOMETER DEV NAME(LOC) 6N.2B; GLUCOSE,POINT OF CARE 188 MG/DL (70-110)
[2021-12-26] MEDS ORDERED: RINGERS SOLUTION,LACTATED 1,000 ML IV ONE ×2 (06:20→06:45)
[2021-12-26] MEDS ORDERED: VANCOMYCIN HCL 1 GM/VIAL ONE (06:35)
[2021-12-26] MEDS ORDERED: SODIUM CL IRRIG SOLN BAG 6,000 ML IRRIG ONE (06:36)
[2021-12-26] MEDS ORDERED: MEPERIDINE-PF 25 MG/ML VIAL IVP PRN (06:45)
[2021-12-26] MEDS ORDERED: FentaNYL CITRATE PF 100 MCG/2 ML VIAL IVP PRN (06:45)
[2021-12-26 07:22] LABS: CALCIUM, TOTAL 8.3 mg/dL (8.8-10.5); CREATININE 1.72 mg/dL (0.60-1.30); POTASSIUM 3.7 mmol/L (3.5-5.1)
[2021-12-26] MEDS ORDERED: SODIUM CL IRRIG SOLN BAG 3,000 ML IRRIG ONE (07:54)
[2021-12-26] MEDS: HEPARIN SODIUM,PORCINE 5,000 UNITS/ML VIAL SQ SCH ×3 (08:00→23:50)
[2021-12-26] MEDS ORDERED: HYDROmorphone HCL 2 MG/ML SYRINGE ONE (08:31)
[2021-12-26] MEDS: HYDROmorphone HCL 2 MG/ML SYRINGE IVP PRN ×4 (08:34→09:04)
[2021-12-26] MEDS: MULTIVITAMINS WITH MINERALS, THERAPEUTIC TABLET PO SCH (09:00)
[2021-12-26] MEDS: LACTOBACILLUS ACIDOPHILUS/BULGARICUS GRANULES PACKET PO SCH ×3 (09:00→20:37)
[2021-12-26] MEDS: PANTOPRAZOLE SODIUM 40 MG DR TABLET PO SCH (09:00)
[2021-12-26] MEDS ORDERED: VANCOMYCIN HCL 500 MG in DEXTROSE 5%-WATER 100 ML IV ONE (10:00)
[2021-12-26] MEDS: INSULIN GLARGINE,HUM.REC.ANLOG 100 UNITS/ML SQ SCH (11:50)
[2021-12-26] MEDS: INSULIN LISPRO 100 UNITS/ML SQ PRN ×3 (11:54→20:38)
[2021-12-26] MEDS ORDERED: LIDOCAINE/PF 2% 5 ML VIAL IM ONE (12:00)
[2021-12-26] MEDS ORDERED: ROCURONIUM BROMIDE 10 MG/ML 5 ML VIAL IVP ONE (12:00)
[2021-12-26] MEDS ORDERED: PROPOFOL 1% 20 ML VIAL IVP ONE (12:00)
[2021-12-26] MEDS ORDERED: MIDAZOLAM HCL 2 MG/2 ML VIAL IVP ONE (12:00)
[2021-12-26] MEDS ORDERED: DEXAMETHASONE SOD PHOS 4 MG/ML VIAL IVP ONE (12:00)
[2021-12-26] MEDS ORDERED: FentaNYL CITRATE PF 100 MCG/2 ML VIAL IVP ONE (12:00)
[2021-12-26 12:21] LABS: GLUCOMETER DEV NAME(LOC) 6N.1; GLUCOSE,POINT OF CARE 189 MG/DL (70-110)
[2021-12-26 15:59] VITALS: BP 107/53
[2021-12-26] MEDS: CLINDAMYCIN HCL 150 MG CAPSULE PO SCH ×2 (16:30→23:50)
[2021-12-26] MEDS: CeFAZolin 2 GM/DEXTROSE 50 ML IV SCH (18:02)
[2021-12-26 18:11] LABS: GLUCOMETER DEV NAME(LOC) 6N.2B; GLUCOSE,POINT OF CARE 243 MG/DL (70-110)
[2021-12-26 19:55] VITALS: BP 105/50
[2021-12-26] MEDS: OXYGEN THERAPY IH SCH (20:00)
[2021-12-26] MEDS ORDERED: SODIUM CHLORIDE 0.9% 500 ML IV ONE (23:56)
[2021-12-27 03:21] LABS: GLUCOMETER DEV NAME(LOC) 6N.2B; GLUCOSE,POINT OF CARE 245 MG/DL (70-110)
[2021-12-27 04:29] VITALS: BP 104/50
[2021-12-27] MEDS: CeFAZolin 2 GM/DEXTROSE 50 ML IV SCH ×2 (05:48→18:08)
[2021-12-27 06:17] LABS: GLUCOMETER DEV NAME(LOC) 6N.1; GLUCOSE,POINT OF CARE 101 MG/DL (70-110)
[2021-12-27 06:39] LABS: CALCIUM, TOTAL 8.1 mg/dL (8.8-10.5); CREATININE 1.96 mg/dL (0.60-1.30); POTASSIUM 3.9 mmol/L (3.5-5.1)
[2021-12-27 07:53] VITALS: BP 120/52
[2021-12-27] MEDS: OXYGEN THERAPY IH SCH ×2 (08:00→19:54)
[2021-12-27] MEDS: MULTIVITAMINS WITH MINERALS, THERAPEUTIC TABLET PO SCH (08:29)
[2021-12-27] MEDS: LACTOBACILLUS ACIDOPHILUS/BULGARICUS GRANULES PACKET PO SCH ×3 (08:29→20:42)
[2021-12-27] MEDS: PANTOPRAZOLE SODIUM 40 MG DR TABLET PO SCH (08:29)
[2021-12-27] MEDS: HEPARIN SODIUM,PORCINE 5,000 UNITS/ML VIAL SQ SCH ×3 (08:30→23:09)
[2021-12-27] MEDS: CLINDAMYCIN HCL 150 MG CAPSULE PO SCH ×3 (08:30→23:08)
[2021-12-27] MEDS: INSULIN GLARGINE,HUM.REC.ANLOG 100 UNITS/ML SQ SCH (08:31)
[2021-12-27] MEDS ORDERED: VANCOMYCIN HCL 500 MG in DEXTROSE 5%-WATER 100 ML IV SCH (09:00)
[2021-12-27 12:16] LABS: GLUCOMETER DEV NAME(LOC) 6N.1; GLUCOSE,POINT OF CARE 106 MG/DL (70-110)
[2021-12-27 16:17] VITALS: BP 101/50
[2021-12-27 17:22] LABS: GLUCOMETER DEV NAME(LOC) 6N.2B; GLUCOSE,POINT OF CARE 151 MG/DL (70-110)
[2021-12-27] MEDS: INSULIN LISPRO 100 UNITS/ML SQ PRN (18:05)
[2021-12-27 20:00] VITALS: BP 101/46
[2021-12-27 21:51] LABS: GLUCOMETER DEV NAME(LOC) 6N.1; GLUCOSE,POINT OF CARE 89 MG/DL (70-110)
[2021-12-28 04:00] VITALS: BP 107/46
[2021-12-28] MEDS: CeFAZolin 2 GM/DEXTROSE 50 ML IV SCH ×2 (05:36→17:50)
[2021-12-28 06:26] LABS: GLUCOMETER DEV NAME(LOC) 6N.2B; GLUCOSE,POINT OF CARE 97 MG/DL (70-110)
[2021-12-28 06:41] LABS: CALCIUM, TOTAL 7.8 mg/dL (8.8-10.5); CREATININE 2.13 mg/dL (0.60-1.30); POTASSIUM 3.9 mmol/L (3.5-5.1)
[2021-12-28] MEDS: OXYGEN THERAPY IH SCH ×2 (08:00→19:57)
[2021-12-28] MEDS: HEPARIN SODIUM,PORCINE 5,000 UNITS/ML VIAL SQ SCH ×3 (08:05→23:26)
[2021-12-28] MEDS: LACTOBACILLUS ACIDOPHILUS/BULGARICUS GRANULES PACKET PO SCH ×3 (08:05→20:10)
[2021-12-28] MEDS: MULTIVITAMINS WITH MINERALS, THERAPEUTIC TABLET PO SCH (08:06)
[2021-12-28] MEDS: PANTOPRAZOLE SODIUM 40 MG DR TABLET PO SCH (08:06)
[2021-12-28 08:10] VITALS: BP 106/49
[2021-12-28] MEDS: CLINDAMYCIN HCL 150 MG CAPSULE PO SCH ×3 (08:13→23:25)
[2021-12-28] MEDS: INSULIN GLARGINE,HUM.REC.ANLOG 100 UNITS/ML SQ SCH (10:01)
[2021-12-28 15:10] VITALS: BP 115/59
[2021-12-28 15:32] LABS: GLUCOMETER DEV NAME(LOC) 6N.1; GLUCOSE,POINT OF CARE 96 MG/DL (70-110)
[2021-12-28] MEDS: INSULIN LISPRO 100 UNITS/ML SQ PRN (17:50)
[2021-12-28 19:16] VITALS: BP 115/54
[2021-12-29 00:41] LABS: GLUCOMETER DEV NAME(LOC) 6N.2B; GLUCOSE,POINT OF CARE 162 MG/DL (70-110)
[2021-12-29 00:41] LABS: GLUCOMETER DEV NAME(LOC) 6N.1; GLUCOSE,POINT OF CARE 113 MG/DL (70-110)
[2021-12-29] MEDS: SODIUM CHLORIDE 0.9% 1,000 ML IV SCH ×2 (01:36→16:02)
[2021-12-29 04:02] VITALS: BP 113/52
[2021-12-29] MEDS: CeFAZolin 2 GM/DEXTROSE 50 ML IV SCH ×2 (06:44→18:07)
[2021-12-29 07:11] LABS: GLUCOMETER DEV NAME(LOC) 6N.2B; GLUCOSE,POINT OF CARE 74 MG/DL (70-110)
[2021-12-29] MEDS: HEPARIN SODIUM,PORCINE 5,000 UNITS/ML VIAL SQ SCH ×3 (08:00→23:49)
[2021-12-29] MEDS: OXYGEN THERAPY IH SCH (08:00)
[2021-12-29 08:05] VITALS: BP 114/54
[2021-12-29] MEDS: PANTOPRAZOLE SODIUM 40 MG DR TABLET PO SCH (08:35)
[2021-12-29] MEDS: MULTIVITAMINS WITH MINERALS, THERAPEUTIC TABLET PO SCH (08:35)
[2021-12-29] MEDS: CLINDAMYCIN HCL 150 MG CAPSULE PO SCH ×3 (08:35→23:49)
[2021-12-29] MEDS: LACTOBACILLUS ACIDOPHILUS/BULGARICUS GRANULES PACKET PO SCH ×3 (08:36→19:58)
[2021-12-29] MEDS: INSULIN GLARGINE,HUM.REC.ANLOG 100 UNITS/ML SQ SCH (09:00)
[2021-12-29] MEDS ORDERED: SODIUM CHLORIDE 0.9% 1,000 ML ONE (10:00)
[2021-12-29] MEDS ORDERED: SODIUM CHLORIDE 0.9% 1,000 ML IV ONE (12:00)
[2021-12-29] MEDS ORDERED: SODIUM CL IRRIG SOLN BAG 6,000 ML IRRIG ONE (12:05)
[2021-12-29 12:25] LABS: APPEARANCE,URINE TURBID (CLEAR); BILIRUBIN,URINE NEGATIVE (NEGATIVE); GLUCOSE, URINE (UA) NEGATIVE (NEGATIVE); KETONES,URINE NEGATIVE (NEGATIVE); LEUKOCYTE ESTERASE ,URINE LARGE (NEGATIVE); NITRATE,URINE NEGATIVE (NEGATIVE); OCCULT BLOOD,URINE SMALL (NEGATIVE); PROTEIN,URINE TRACE mg/dL (NEGATIVE); SPECIFIC GRAVITIY, URINE 1.005 (1.003-1.030); UROBILINOGEN,URINE <=1.0 mg/dL (<=1.0)
[2021-12-29 12:44] LABS: BACTERIA,URINE Many /HPF (None Seen); WBC,URINE >100 /HPF (0-5); YEAST,URINE Many /HPF (None Seen)
[2021-12-29 13:02] LABS: CREATININE,URINE RANDOM 20.3 mg/dL (30.0-125.0); PROTEIN,URINE RANDOM 32 mg/dL (0-11.9); SODIUM,URINE RANDOM 39 mmol/l (20-110); UREA NITROGEN,URINE RANDOM 128 mg/dL (350-1000)
[2021-12-29] MEDS: VANCOMYCIN HCL 1 GM/VIAL ONE ×2 (13:34→13:39)
[2021-12-29] MEDS ORDERED: POVIDONE-IODINE 30 GM OINTMENT TP ONE (13:43)
[2021-12-29] MEDS ORDERED: SUGAMMADEX SODIUM 200 MG/2 ML VIAL IVP ONE (13:48)
[2021-12-29] MEDS ORDERED: ACETAMINOPHEN 1000 MG/ISO-OSM 100 ML IV ONE (14:30)
[2021-12-29 16:03] VITALS: BP 124/64
[2021-12-29 18:16] LABS: GLUCOMETER DEV NAME(LOC) 6N.2B; GLUCOSE,POINT OF CARE 84 MG/DL (70-110)
[2021-12-29 18:17] LABS: GLUCOMETER DEV NAME(LOC) 6N.2B; GLUCOSE,POINT OF CARE 123 MG/DL (70-110)
[2021-12-29 19:15] VITALS: BP 115/58
[2021-12-29] MEDS: INSULIN LISPRO 100 UNITS/ML SQ PRN (20:23)
[2021-12-29 22:07] LABS: GLUCOMETER DEV NAME(LOC) 6N.1; GLUCOSE,POINT OF CARE 170 MG/DL (70-110)
[2021-12-30] VITALS (12 sets, daily range): BP systolic 92–120; BP diastolic 36–56
[2021-12-30] MEDS: CeFAZolin 2 GM/DEXTROSE 50 ML IV SCH ×2 (05:21→17:42)
[2021-12-30] MEDS ORDERED: MIDAZOLAM HCL 2 MG/2 ML VIAL IVP ONE (05:49)
[2021-12-30] MEDS ORDERED: PROPOFOL 1% 20 ML VIAL IVP ONE (05:49)
[2021-12-30] MEDS ORDERED: ONDANSETRON HCL 4 MG/2 ML VIAL IVP ONE (05:49)
[2021-12-30] MEDS ORDERED: ROCURONIUM BROMIDE 10 MG/ML 5 ML VIAL IVP ONE (05:49)
[2021-12-30] MEDS ORDERED: FentaNYL CITRATE PF 100 MCG/2 ML VIAL IVP ONE (05:49)
[2021-12-30] MEDS ORDERED: DEXAMETHASONE SOD PHOS 4 MG/ML VIAL IVP ONE (05:49)
[2021-12-30] MEDS ORDERED: LIDOCAINE/PF 2% 5 ML SYRINGE IVP ONE (05:49)
[2021-12-30] MEDS: SODIUM CHLORIDE 0.9% 1,000 ML IV SCH ×2 (07:15→09:04)
[2021-12-30] MEDS: OXYGEN THERAPY IH SCH ×2 (08:00→20:39)
[2021-12-30 08:12] LABS: ANION GAP 11 mmol/L (8-16); CALCIUM, TOTAL 7.7 mg/dL (8.8-10.5); CARBON DIOXIDE 19 mmol/L (22-29); CHLORIDE 108 mmol/L (98-107); CREATININE 2.33 mg/dL (0.60-1.30); GLOMERULAR FILTR. RATE CALC 21 mL/min (>60); GLUCOSE,RANDOM 111 mg/dL (70-110); POTASSIUM 4.4 mmol/L (3.5-5.1); SODIUM SERUM 138 mmol/L (136-145); UREA NITROGEN, BLOOD 25 mg/dL (7-18)
[2021-12-30 08:16] LABS: BASOPHILS % (AUTO) 0.7 % (0.0-2.0); EOSINOPHILS % (AUTO) 1.3 % (1.0-6.0); LYMPHOCYTES # (AUTO) 2.2 K/uL (1.0-4.8); MEAN CORPUSCULAR HEMOGLOBIN 31.1 pg (26.0-34.0); MEAN CORPUSCULAR HGB CONC 32.8 G/dL (31.0-37.0); MEAN CORPUSCULAR VOLUME 95 fL (80-100); MONOCYTES # (AUTO) 0.4 K/uL (0.1-1.0); MONOCYTES % (AUTO) 5.8 % (2.0-9.0); NEUTROPHILS # (AUTO) 4.6 K/uL (1.8-7.7); NEUTROPHILS % (AUTO) 62.2 % (40.0-70.0); PLATELET COUNT (AUTO) 244 K/uL (150-450); RED BLOOD CELL COUNT(AUTO) 2.19 MIL/uL (4.00-5.20)
[2021-12-30 08:16] LABS: GLUCOMETER DEV NAME(LOC) 6N.1; GLUCOSE,POINT OF CARE 101 MG/DL (70-110)
[2021-12-30 08:18] LABS: ALBUMIN 1.3 g/dL (3.4-5.0); ALKALINE PHOSPHATASE 66 U/L (46-116); ASPARTATE AMINOTRANSFERASE 12 U/L (15-37); BILIRUBIN,TOTAL 0.2 mg/dL (0.1-1.0); TOTAL PROTEIN, SERUM 5.7 g/dL (6.4-8.2)
[2021-12-30 08:19] LABS: HEMATOCRIT 20.8 % (36-46); HEMOGLOBIN 6.8 g/dL (12.0-16.0)
[2021-12-30 08:56] LABS: ALANINE AMINOTRANSFERASE < 12 U/L (12-78)
[2021-12-30] MEDS: MULTIVITAMINS WITH MINERALS, THERAPEUTIC TABLET PO SCH (09:03)
[2021-12-30] MEDS: PANTOPRAZOLE SODIUM 40 MG DR TABLET PO SCH (09:03)
[2021-12-30] MEDS: CLINDAMYCIN HCL 150 MG CAPSULE PO SCH (09:04)
[2021-12-30] MEDS: HEPARIN SODIUM,PORCINE 5,000 UNITS/ML VIAL SQ SCH ×3 (09:04→23:31)
[2021-12-30] MEDS: LACTOBACILLUS ACIDOPHILUS/BULGARICUS GRANULES PACKET PO SCH ×3 (09:04→20:37)
[2021-12-30] MEDS: INSULIN GLARGINE,HUM.REC.ANLOG 100 UNITS/ML SQ SCH (09:17)
[2021-12-30] MEDS: INSULIN LISPRO 100 UNITS/ML SQ PRN (11:49)
[2021-12-30 14:21] LABS: GLUCOMETER DEV NAME(LOC) 6N.1; GLUCOSE,POINT OF CARE 197 MG/DL (70-110)
[2021-12-30] MEDS ORDERED: SODIUM CHLORIDE 0.9% 500 ML IV ONE (14:28)
[2021-12-30 17:56] LABS: GLUCOMETER DEV NAME(LOC) 6N.1; GLUCOSE,POINT OF CARE 138 MG/DL (70-110)
[2021-12-31 03:01] LABS: GLUCOMETER DEV NAME(LOC) 6N.1; GLUCOSE,POINT OF CARE 139 MG/DL (70-110)
[2021-12-31 04:30] VITALS: BP 108/48
[2021-12-31] MEDS: CeFAZolin 2 GM/DEXTROSE 50 ML IV SCH ×2 (06:19→17:00)
[2021-12-31 07:42] LABS: GLUCOMETER DEV NAME(LOC) 6N.2B; GLUCOSE,POINT OF CARE 80 MG/DL (70-110)
[2021-12-31 08:00] VITALS: BP 117/56
[2021-12-31] MEDS: OXYGEN THERAPY IH SCH ×2 (08:00→20:25)
[2021-12-31] MEDS: PANTOPRAZOLE SODIUM 40 MG DR TABLET PO SCH (08:48)
[2021-12-31] MEDS: MULTIVITAMINS WITH MINERALS, THERAPEUTIC TABLET PO SCH (08:48)
[2021-12-31] MEDS: LACTOBACILLUS ACIDOPHILUS/BULGARICUS GRANULES PACKET PO SCH ×3 (08:48→20:25)
[2021-12-31] MEDS: HEPARIN SODIUM,PORCINE 5,000 UNITS/ML VIAL SQ SCH ×3 (08:48→23:17)
[2021-12-31] MEDS: INSULIN GLARGINE,HUM.REC.ANLOG 100 UNITS/ML SQ SCH (08:57)
[2021-12-31 10:19] LABS: BASOPHILS % (AUTO) 0.7 % (0.0-2.0); EOSINOPHILS % (AUTO) 2.2 % (1.0-6.0); HEMATOCRIT 24.8 % (36-46); HEMOGLOBIN 8.3 g/dL (12.0-16.0); LYMPHOCYTES # (AUTO) 1.8 K/uL (1.0-4.8); LYMPHOCYTES % (AUTO) 29.1 % (22.0-44.0); MEAN CORPUSCULAR HEMOGLOBIN 30.9 pg (26.0-34.0); MEAN CORPUSCULAR HGB CONC 33.3 G/dL (31.0-37.0); MEAN CORPUSCULAR VOLUME 93 fL (80-100); MONOCYTES # (AUTO) 0.3 K/uL (0.1-1.0); MONOCYTES % (AUTO) 5.7 % (2.0-9.0); NEUTROPHILS # (AUTO) 3.7 K/uL (1.8-7.7); NEUTROPHILS % (AUTO) 62.3 % (40.0-70.0); PLATELET COUNT (AUTO) 212 K/uL (150-450); RED BLOOD CELL COUNT(AUTO) 2.68 MIL/uL (4.00-5.20); RED CELL DISTRIBUTION WIDTH 16.2 % (11.5-14.5)
[2021-12-31 10:30] LABS: CREATININE 2.15 mg/dL (0.60-1.30); POTASSIUM 4.4 mmol/L (3.5-5.1)
[2021-12-31 10:34] LABS: PHOSPHORUS 2.8 mg/dL (2.5-4.9)
[2021-12-31 11:31] LABS: GLUCOMETER DEV NAME(LOC) 6N.1; GLUCOSE,POINT OF CARE 101 MG/DL (70-110)
[2021-12-31 15:07] VITALS: BP 106/49
[2021-12-31 16:21] LABS: GLUCOMETER DEV NAME(LOC) 6N.1; GLUCOSE,POINT OF CARE 151 MG/DL (70-110)
[2021-12-31 16:41] LABS: GLUCOMETER DEV NAME(LOC) 6N.2B; GLUCOSE,POINT OF CARE 118 MG/DL (70-110)
[2021-12-31] MEDS: INSULIN LISPRO 100 UNITS/ML SQ PRN (17:00)
[2021-12-31 20:32] VITALS: BP 110/59
[2021-12-31 22:31] LABS: GLUCOMETER DEV NAME(LOC) 6N.1; GLUCOSE,POINT OF CARE 163 MG/DL (70-110)
[2022-01-01 04:30] VITALS: BP 115/52
[2022-01-01 06:17] LABS: BASOPHILS % (AUTO) 0.6 % (0.0-2.0); EOSINOPHILS % (AUTO) 2.6 % (1.0-6.0); HEMATOCRIT 24.2 % (36-46); HEMOGLOBIN 8.1 g/dL (12.0-16.0); LYMPHOCYTES # (AUTO) 2.1 K/uL (1.0-4.8); LYMPHOCYTES % (AUTO) 34.9 % (22.0-44.0); MEAN CORPUSCULAR HEMOGLOBIN 31.2 pg (26.0-34.0); MEAN CORPUSCULAR HGB CONC 33.6 G/dL (31.0-37.0); MEAN CORPUSCULAR VOLUME 93 fL (80-100); MONOCYTES # (AUTO) 0.4 K/uL (0.1-1.0); MONOCYTES % (AUTO) 6.5 % (2.0-9.0); NEUTROPHILS # (AUTO) 3.3 K/uL (1.8-7.7); NEUTROPHILS % (AUTO) 55.4 % (40.0-70.0); PLATELET COUNT (AUTO) 198 K/uL (150-450); RED CELL DISTRIBUTION WIDTH 16.5 % (11.5-14.5)
[2022-01-01 06:51] LABS: GLUCOMETER DEV NAME(LOC) 6N.1; GLUCOSE,POINT OF CARE 85 MG/DL (70-110)
[2022-01-01] MEDS: CeFAZolin 2 GM/DEXTROSE 50 ML IV SCH (07:02)
[2022-01-01 07:03] LABS: MAGNESIUM 1.9 mg/dL (1.80-2.40); PHOSPHORUS 2.9 mg/dL (2.5-4.9)
[2022-01-01 07:47] LABS: CALCIUM, TOTAL 7.8 mg/dL (8.8-10.5); CREATININE 1.74 mg/dL (0.60-1.30); POTASSIUM 3.9 mmol/L (3.5-5.1)
[2022-01-01 08:00] VITALS: BP 114/58
[2022-01-01] MEDS: OXYGEN THERAPY IH SCH (08:00)
[2022-01-01] MEDS: MULTIVITAMINS WITH MINERALS, THERAPEUTIC TABLET PO SCH (08:57)
[2022-01-01] MEDS: PANTOPRAZOLE SODIUM 40 MG DR TABLET PO SCH (08:57)
[2022-01-01] MEDS: LACTOBACILLUS ACIDOPHILUS/BULGARICUS GRANULES PACKET PO SCH ×2 (08:58→17:02)
[2022-01-01] MEDS: HEPARIN SODIUM,PORCINE 5,000 UNITS/ML VIAL SQ SCH ×2 (08:59→17:02)
[2022-01-01] MEDS ORDERED: EPOETIN ALFA 10,000 UNITS/ML VIAL SQ SCH (09:00)
[2022-01-01] MEDS: INSULIN GLARGINE,HUM.REC.ANLOG 100 UNITS/ML SQ SCH (09:06)
[2022-01-01 14:51] LABS: GLUCOMETER DEV NAME(LOC) 6N.1; GLUCOSE,POINT OF CARE 78 MG/DL (70-110)
[2022-01-01 15:37] VITALS: BP 118/50
[2022-01-02 14:21] LABS: GLUCOMETER DEV NAME(LOC) 6N.1; GLUCOSE,POINT OF CARE 82 MG/DL (70-110)
== END 2022-01-01 18:30 | DRG 579 ==
LOC: EMS 17:23 → 5S 12-16 18:30 → 6S 12-23 05:10
PROVIDERS: ADMIT Hospitalist; ATTEND Hospitalist
PROC: 0KBR0ZZ Excision of Left Upper Leg Muscle, Open Approach (ICD-10-PCS; principal; 2021-12-23 09:15)
PROC: 0KBR0ZZ Excision of Left Upper Leg Muscle, Open Approach (ICD-10-PCS; 2021-12-26)
PROC: 0S9D3ZZ Drainage of Left Knee Joint, Percutaneous Approach (ICD-10-PCS; 2021-12-26)
PROC: 0KBR0ZZ Excision of Left Upper Leg Muscle, Open Approach (ICD-10-PCS; 2021-12-29)
PROC: 30233N1 Transfusion of Nonautologous Red Blood Cells into Peripheral Vein, Percutaneous Approach (ICD-10-PCS; 2021-12-30)
DX: L03.116 Cellulitis of left lower limb (principal); E43 Unspecified severe protein-calorie malnutrition; E87.1 Hypo-osmolality and hyponatremia; N13.6 Pyonephrosis; R65.10 Systemic inflammatory response syndrome (SIRS) of non-infectious origin without acute organ dysfunction; N17.9 Acute kidney failure, unspecified; E11.65 Type 2 diabetes mellitus with hyperglycemia; E87.6 Hypokalemia; B95.61 Methicillin susceptible Staphylococcus aureus infection as the cause of diseases classified elsewhere; E86.0 Dehydration; M19.90 Unspecified osteoarthritis, unspecified site; D63.1 Anemia in chronic kidney disease; L02.416 Cutaneous abscess of left lower limb; L02.415 Cutaneous abscess of right lower limb; E11.22 Type 2 diabetes mellitus with diabetic chronic kidney disease; Z20.822 Contact with and (suspected) exposure to COVID-19; N18.9 Chronic kidney disease, unspecified
CPT/HCPCS: 36245; 36569; 36600; 71045; 71260; 72193; 73700; 73720; 74160; 76770; 76937; 80048; 80053; 80202; 81001; 82009; 82040; 82550; 82570; 82805; 82962; 83036; 83605; 83690; 83735; 84100; 84132; 84156; 84300; 84484; 84540; 85025; 85610; 85730; 86850; 86900; 86901; 86920; 87015; 87040; 87070; 87081; 87086; 87101; 87186; 87205; 87206; 93005; 93306; 93971; 97110; 97116; 97162; 97166; 97530; 97535; 99291; G0238; J0131; J0690; J0696; J0885; J1100; J1170; J1644; J1815; J2250; J2405; J2543; J2704; J3010; J3370; J3480; J3490; J7030; J7040; J7050; J7060; J7120; P9016; Q9967; 36415-L1; 36415-TC; Z7610

== ENCOUNTER 2022-01-27 14:34 | Inpatient (IN) | payer MEDICARE ==
[~2022-01-27] VITALS: Ht 157.5 cm; Wt 44.5 kg
[~2022-01-27 14:34] MED LIST: ACET-2247 PO; ASCO500 PO; EPOE10I SQ; HEPA500018 SQ; HYDR-4723 PO; INSU100C14 SQ; LACT1CAP70 PO; METF-1211 PO; MULT-660 PO; ONDA-104 PO; PANT-31 PO; ZINC220C14 PO
[2022-01-27] MEDS ORDERED: SODIUM CHLORIDE 0.9% 100 ML ONE (15:05)
[2022-01-27] MEDS ORDERED: IOHEXOL 350 MG/ML 100 ML VIAL ONE (15:05)
[2022-01-27] MEDS ORDERED: SODIUM CHLORIDE 0.9% 1,000 ML IV ONE (15:45)
[2022-01-27 15:46] LABS: BASOPHILS % (AUTO) 0.3 % (0.0-2.0); EOSINOPHILS % (AUTO) 0.7 % (1.0-6.0); HEMATOCRIT 26.1 % (36-46); HEMOGLOBIN 8.2 g/dL (12.0-16.0); LYMPHOCYTES # (AUTO) 0.8 K/uL (1.0-4.8); LYMPHOCYTES % (AUTO) 13.2 % (22.0-44.0); MEAN CORPUSCULAR HEMOGLOBIN 30.1 pg (26.0-34.0); MEAN CORPUSCULAR HGB CONC 31.4 G/dL (31.0-37.0); MEAN CORPUSCULAR VOLUME 96 fL (80-100); MONOCYTES # (AUTO) 0.6 K/uL (0.1-1.0); MONOCYTES % (AUTO) 9.4 % (2.0-9.0); NEUTROPHILS # (AUTO) 4.7 K/uL (1.8-7.7); NEUTROPHILS % (AUTO) 76.4 % (40.0-70.0); PLATELET COUNT (AUTO) 161 K/uL (150-450); RED BLOOD CELL COUNT(AUTO) 2.73 MIL/uL (4.00-5.20); RED CELL DISTRIBUTION WIDTH 19.4 % (11.5-14.5)
[2022-01-27 16:02] LABS: INR 1.3 (0.9-1.1); LACTIC ACID 3.5 mmol/L (0.4-2.0)
[2022-01-27 16:07] LABS: ALBUMIN 1.9 g/dL (3.4-5.0); BILIRUBIN,TOTAL 0.4 mg/dL (0.1-1.0); CALCIUM, TOTAL 8.5 mg/dL (8.8-10.5); CREATININE 7.9 mg/dL (0.60-1.30); TOTAL PROTEIN, SERUM 6.8 g/dL (6.4-8.2)
[2022-01-27 16:09] LABS: POTASSIUM 2.8 mmol/L (3.5-5.1)
[2022-01-27] MEDS ORDERED: POTASSIUM CHL 10 MEQ/WATER 50 ML IV SCH (16:15)
[2022-01-27] MEDS ORDERED: POTASSIUM CHL 10 MEQ/WATER 50 ML IV ONE (16:45)
[2022-01-27] MEDS ORDERED: ONDANSETRON HCL 4 MG/2 ML VIAL IVP PRN (17:00)
[2022-01-27] MEDS ORDERED: ACETAMINOPHEN 325 MG TABLET PO PRN (17:00)
[2022-01-27] MEDS ORDERED: SODIUM CHLORIDE 0.9% 1,000 ML IV SCH (17:15)
[2022-01-27] MEDS ORDERED: [UNRECOGNIZED DRUG - CODE] IV (17:41)
[2022-01-27] MEDS ORDERED: VANC1FZ IV (17:41)
[2022-01-27 18:48] LABS: COVID AG,FIA SOURCE NASAL SWAB
[2022-01-27] MEDS: SODIUM CHLORIDE 0.9% 1,000 ML IV SCH (20:24)
[2022-01-27] MEDS: HEPARIN SODIUM,PORCINE 5,000 UNITS/ML VIAL SQ SCH (21:44)
[2022-01-28] VITALS (9 sets, daily range): BP systolic 98–123; BP diastolic 50–70
[2022-01-28 01:02] LABS: ABG CARBOXYHEMOGLOBIN 0.3 % (0.0-1.5); SOURCE, BLOOD GAS ARTERIAL
[2022-01-28 01:40] LABS: ABG BASE EXCESS -22.4 mmol/L (-2.0-3.0); ABG METHEMOGLOBIN 0.3 % (0.0-1.5); ABG OXYGEN CONTENT 13.4 mL/dL (15.0-23.0); ABG OXYGEN SATURATION 98.4 % (95.0-98.0); ABG OXYHEMOGLOBIN 97.8 % (94.0-100.0); ABG PH 7.218 (7.35-7.450); ABG TOTAL HEMOGLOBIN 9.5 G/dL (12.0-18.0); PO2, ARTERIAL BG 140.1 mmHg (79.0-87.0); TEMPERATURE, FAHRENHEIT, BG 98.6 FAHREN (96.0-98.6)
[2022-01-28 01:42] LABS: ABG HCO3 9.3 mmol/L (22.0-26.0); ABG PCO2 13 mmHg (35-45); SITE, BLOOD GAS RT RADIAL
[2022-01-28] MEDS ORDERED: SODIUM BICARBONATE 50 MEQ/50 ML VIAL IVP ONE (02:30)
[2022-01-28 02:49] LABS: CREATININE,URINE RANDOM 25.2 mg/dL (30.0-125.0)
[2022-01-28 02:53] LABS: APPEARANCE,URINE TURBID (CLEAR); BILIRUBIN,URINE NEGATIVE (NEGATIVE); GLUCOSE, URINE (UA) NEGATIVE (NEGATIVE); KETONES,URINE NEGATIVE (NEGATIVE); LEUKOCYTE ESTERASE ,URINE LARGE (NEGATIVE); NITRATE,URINE NEGATIVE (NEGATIVE); OCCULT BLOOD,URINE SMALL (NEGATIVE); PH,URINE 5.5 (5.0-8.0); PROTEIN,URINE 100-200,SEE CONFIRM mg/dL (NEGATIVE); SPECIFIC GRAVITIY, URINE 1.008 (1.003-1.030); UROBILINOGEN,URINE <=1.0 mg/dL (<=1.0)
[2022-01-28] MEDS ORDERED: SODIUM BICARBONATE [ADULT] 8.4% 50 MEQ/50 ML SYRINGE IVP ONE ×2 (02:55→03:00)
[2022-01-28 02:59] LABS: AMPHET/METH SCREEN,URINE NEGATIVE (NEGATIVE); BARBITURATE SCREEN, URINE NEGATIVE (NEGATIVE); BENZODIAZEPINES SCREEN,URINE NEGATIVE (NEGATIVE); CANNABINOID SCREEN,URINE NEGATIVE (NEGATIVE); COCAINE SCREEN,URINE NEGATIVE (NEGATIVE); METHADONE SCREEN, URINE NEGATIVE (NEGATIVE); OPIATE SCREEN,URINE NEGATIVE (NEGATIVE)
[2022-01-28 03:05] LABS: PHENCYCLIDINE SCREEN,URINE NEGATIVE (NEGATIVE)
[2022-01-28 03:08] LABS: SULFOSALICYLIC ACID,URINE 1+ (Negative)
[2022-01-28 03:09] LABS: BACTERIA,URINE Many /HPF (None Seen); SQUAMOUS EPITHELIAL CELL,UR None Seen /LPF (None Seen); WBC,URINE Full Field /HPF (0-5)
[2022-01-28 03:21] LABS: C.DIFF GDH ANTIGEN, Stool Negative (Negative); C.DIFF TOXINS A&B, Stool Negative (Negative)
[2022-01-28] MEDS: SODIUM CHLORIDE 0.9% 1,000 ML IV SCH ×2 (04:24→10:52)
[2022-01-28] MEDS ORDERED: *CLINICAL-MEROPENEM DOSING CLINICAL ONE (05:30)
[2022-01-28] MEDS: MEROPENEM 500 MG in SODIUM CHLORIDE 0.9% 50 ML IV SCH (06:42)
[2022-01-28 07:54] LABS: BASOPHILS % (AUTO) 0.8 % (0.0-2.0); HEMATOCRIT 26.3 % (36-46); HEMOGLOBIN 8.6 g/dL (12.0-16.0); LYMPHOCYTES # (AUTO) 0.9 K/uL (1.0-4.8); LYMPHOCYTES % (AUTO) 17.3 % (22.0-44.0); MEAN CORPUSCULAR HEMOGLOBIN 31.6 pg (26.0-34.0); MEAN CORPUSCULAR HGB CONC 32.7 G/dL (31.0-37.0); MEAN CORPUSCULAR VOLUME 97 fL (80-100); MONOCYTES # (AUTO) 0.4 K/uL (0.1-1.0); MONOCYTES % (AUTO) 8.5 % (2.0-9.0); NEUTROPHILS # (AUTO) 3.6 K/uL (1.8-7.7); NEUTROPHILS % (AUTO) 69.4 % (40.0-70.0); PLATELET COUNT (AUTO) 156 K/uL (150-450); RED BLOOD CELL COUNT(AUTO) 2.72 MIL/uL (4.00-5.20)
[2022-01-28 08:12] LABS: LACTIC ACID 1.2 mmol/L (0.4-2.0)
[2022-01-28 08:43] LABS: ALBUMIN 1.7 g/dL (3.4-5.0); BILIRUBIN,TOTAL 0.4 mg/dL (0.1-1.0); CALCIUM, TOTAL 7.6 mg/dL (8.8-10.5); CREATININE 7.37 mg/dL (0.60-1.30); TOTAL PROTEIN, SERUM 6.4 g/dL (6.4-8.2)
[2022-01-28 08:46] LABS: POTASSIUM 2.9 mmol/L (3.5-5.1)
[2022-01-28] MEDS: PANTOPRAZOLE SODIUM 40 MG DR TABLET PO SCH (09:00)
[2022-01-28] MEDS: HEPARIN SODIUM,PORCINE 5,000 UNITS/ML VIAL SQ SCH ×2 (09:41→21:05)
[2022-01-28] MEDS: POTASSIUM CHL 10 MEQ/WATER 50 ML IV SCH ×2 (10:53→11:42)
[2022-01-28] MEDS: DEXTROSE 50%-WATER 25 GM/50 ML SYRINGE IVP PRN ×2 (13:10→21:23)
[2022-01-28 13:21] LABS: GLUCOSE,POINT OF CARE 68 MG/DL (70-110)
[2022-01-28] MEDS ORDERED: INFLUENZA VIRUS VACCINE QVS 2022-23 (6MO+)/PF 60 MCG/0.5 ML SYRINGE IM. ONE (14:30)
[2022-01-28] MEDS: DEXTROSE 5%-WATER 1,000 ML IV SCH (18:06)
[2022-01-28 20:41] LABS: GLUCOSE,POINT OF CARE 91 MG/DL (70-110)
[2022-01-28] MEDS: ETHYL ALCOHOL 62% ANTISEPTIC NASAL SANITIZER 0.6 ML AMPUL NASAL SCH (21:05)
[2022-01-28 23:46] LABS: GLUCOSE,POINT OF CARE 178 MG/DL (70-110)
[2022-01-28 23:46] LABS: GLUCOSE,POINT OF CARE 176 MG/DL (70-110)
[2022-01-28 23:46] LABS: GLUCOSE,POINT OF CARE 175 MG/DL (70-110)
[2022-01-28 23:46] LABS: GLUCOSE,POINT OF CARE 59 MG/DL (70-110)
[2022-01-29] VITALS: BP 102/44
[2022-01-29] MEDS: DEXTROSE 5%-WATER 1,000 ML IV SCH ×4 (02:13→19:28)
[2022-01-29 04:00] VITALS: BP 138/71
[2022-01-29] MEDS: MEROPENEM 500 MG in SODIUM CHLORIDE 0.9% 50 ML IV SCH (05:39)
[2022-01-29] MEDS: INSULIN LISPRO 100 UNITS/ML SQ PRN ×3 (05:41→18:29)
[2022-01-29 05:48] LABS: BASOPHILS % (AUTO) 0.9 % (0.0-2.0); EOSINOPHILS % (AUTO) 3.9 % (1.0-6.0); HEMATOCRIT 26.6 % (36-46); HEMOGLOBIN 8.8 g/dL (12.0-16.0); LYMPHOCYTES # (AUTO) 1.1 K/uL (1.0-4.8); LYMPHOCYTES % (AUTO) 27.2 % (22.0-44.0); MEAN CORPUSCULAR HEMOGLOBIN 30.2 pg (26.0-34.0); MEAN CORPUSCULAR VOLUME 91 fL (80-100); MONOCYTES # (AUTO) 0.4 K/uL (0.1-1.0); MONOCYTES % (AUTO) 9.7 % (2.0-9.0); NEUTROPHILS # (AUTO) 2.4 K/uL (1.8-7.7); NEUTROPHILS % (AUTO) 58.3 % (40.0-70.0); RED BLOOD CELL COUNT(AUTO) 2.91 MIL/uL (4.00-5.20); RED CELL DISTRIBUTION WIDTH 19.1 % (11.5-14.5)
[2022-01-29 05:59] LABS: CALCIUM, TOTAL 7.1 mg/dL (8.8-10.5); CREATININE 3.84 mg/dL (0.60-1.30); MAGNESIUM 1.4 mg/dL (1.80-2.40); PHOSPHORUS 1.6 mg/dL (2.5-4.9); POTASSIUM 3.3 mmol/L (3.5-5.1)
[2022-01-29 06:12] LABS: GLUCOSE,POINT OF CARE 179 MG/DL (70-110)
[2022-01-29 06:41] LABS: PLATELET COUNT (AUTO) 142 K/uL (150-450)
[2022-01-29 08:00] VITALS: BP 113/45
[2022-01-29] MEDS: PANTOPRAZOLE SODIUM 40 MG DR TABLET PO SCH (09:00)
[2022-01-29] MEDS: ETHYL ALCOHOL 62% ANTISEPTIC NASAL SANITIZER 0.6 ML AMPUL NASAL SCH ×2 (09:32→21:26)
[2022-01-29] MEDS: HEPARIN SODIUM,PORCINE 5,000 UNITS/ML VIAL SQ SCH ×2 (09:33→21:26)
[2022-01-29 12:00] VITALS: BP 142/66
[2022-01-29] MEDS ORDERED: PNEUMOCOCCAL VACCINE POLYVALENT 0.5 ML VIAL [PPSV23] IM. ONE (12:00)
[2022-01-29 14:06] LABS: GLUCOSE,POINT OF CARE 211 MG/DL (70-110)
[2022-01-29] MEDS ORDERED: HEPARIN SODIUM,PORCINE 1,000 UNITS/ML VIAL IVP ONE (14:56)
[2022-01-29 16:00] VITALS: BP 139/62
[2022-01-29] MEDS ORDERED: VANC500FZ IV (18:28)
[2022-01-29 19:41] LABS: GLUCOSE,POINT OF CARE 193 MG/DL (70-110)
[2022-01-29 19:41] LABS: GLUCOSE,POINT OF CARE 148 MG/DL (70-110)
[2022-01-29 20:00] VITALS: BP 138/67
[2022-01-29 21:46] LABS: GLUCOSE,POINT OF CARE 125 MG/DL (70-110)
[2022-01-30] VITALS: BP 119/47
[2022-01-30] MEDS: DEXTROSE 5%-WATER 1,000 ML IV SCH ×2 (03:37→11:38)
[2022-01-30 04:00] VITALS: BP 130/55
[2022-01-30] MEDS: MEROPENEM 500 MG in SODIUM CHLORIDE 0.9% 50 ML IV SCH ×2 (05:04→20:07)
[2022-01-30] MEDS: INSULIN LISPRO 100 UNITS/ML SQ PRN ×3 (06:47→17:32)
[2022-01-30 08:00] VITALS: BP 141/61
[2022-01-30 08:21] LABS: GLUCOSE,POINT OF CARE 179 MG/DL (70-110)
[2022-01-30] MEDS: PANTOPRAZOLE SODIUM 40 MG DR TABLET PO SCH (09:22)
[2022-01-30] MEDS: HEPARIN SODIUM,PORCINE 5,000 UNITS/ML VIAL SQ SCH ×2 (09:22→20:07)
[2022-01-30] MEDS: ETHYL ALCOHOL 62% ANTISEPTIC NASAL SANITIZER 0.6 ML AMPUL NASAL SCH ×2 (09:22→20:07)
[2022-01-30 10:50] LABS: BASOPHILS % (AUTO) 0.5 % (0.0-2.0); EOSINOPHILS % (AUTO) 4.1 % (1.0-6.0); HEMATOCRIT 26.7 % (36-46); HEMOGLOBIN 8.9 g/dL (12.0-16.0); LYMPHOCYTES % (AUTO) 20.5 % (22.0-44.0); MEAN CORPUSCULAR HEMOGLOBIN 30.3 pg (26.0-34.0); MEAN CORPUSCULAR HGB CONC 33.2 G/dL (31.0-37.0); MEAN CORPUSCULAR VOLUME 91 fL (80-100); MONOCYTES # (AUTO) 0.5 K/uL (0.1-1.0); MONOCYTES % (AUTO) 9.7 % (2.0-9.0); NEUTROPHILS # (AUTO) 3.3 K/uL (1.8-7.7); NEUTROPHILS % (AUTO) 65.2 % (40.0-70.0); PLATELET COUNT (AUTO) 88 K/uL (150-450); RED BLOOD CELL COUNT(AUTO) 2.93 MIL/uL (4.00-5.20); RED CELL DISTRIBUTION WIDTH 18.5 % (11.5-14.5)
[2022-01-30 11:46] LABS: CALCIUM, TOTAL 6.7 mg/dL (8.8-10.5); CREATININE 4.07 mg/dL (0.60-1.30); MAGNESIUM 1.2 mg/dL (1.80-2.40); PHOSPHORUS 2.1 mg/dL (2.5-4.9)
[2022-01-30 12:00] VITALS: BP 142/61
[2022-01-30 12:16] LABS: POTASSIUM 2.8 mmol/L (3.5-5.1)
[2022-01-30] MEDS ORDERED: MAGNESIUM SULFATE 4 GM/WATER 100 ML IV ONE (12:45)
[2022-01-30] MEDS ORDERED: SODIUM PHOS,M-BASIC-D-BASIC 30 MMOL in DEXTROSE 5%-WATER 250 ML IV ONE (12:45)
[2022-01-30 12:51] LABS: GLUCOSE,POINT OF CARE 165 MG/DL (70-110)
[2022-01-30] MEDS: POTASSIUM CHL 10 MEQ/WATER 50 ML IV SCH ×4 (13:49→15:39)
[2022-01-30] MEDS: SODIUM CHLORIDE 3% 500 ML IV SCH (13:49)
[2022-01-30 16:00] VITALS: BP 150/60
[2022-01-30 17:25] LABS: CALCIUM, TOTAL 6.7 mg/dL (8.8-10.5); CREATININE 4.08 mg/dL (0.60-1.30); POTASSIUM 3.9 mmol/L (3.5-5.1)
[2022-01-30 17:51] LABS: GLUCOSE,POINT OF CARE 170 MG/DL (70-110)
[2022-01-30 20:00] VITALS: BP 146/62
[2022-01-30] MEDS ORDERED: SODIUM CHLORIDE 0.9% 250 ML IV ONE (20:12)
[2022-01-30 20:59] LABS: CREATININE 4.18 mg/dL (0.60-1.30); POTASSIUM 3.9 mmol/L (3.5-5.1)
[2022-01-30 21:00] LABS: CALCIUM, TOTAL 6.7 mg/dL (8.8-10.5)
[2022-01-30 22:16] LABS: GLUCOSE,POINT OF CARE 106 MG/DL (70-110)
[2022-01-31] VITALS: BP 143/72
[2022-01-31 01:25] LABS: CALCIUM, TOTAL 6.8 mg/dL (8.8-10.5); CREATININE 4.25 mg/dL (0.60-1.30); POTASSIUM 3.6 mmol/L (3.5-5.1)
[2022-01-31 04:00] VITALS: BP 120/55
[2022-01-31 05:29] LABS: CALCIUM, TOTAL 6.8 mg/dL (8.8-10.5); CREATININE 4.22 mg/dL (0.60-1.30); MAGNESIUM 2.4 mg/dL (1.80-2.40); POTASSIUM 3.4 mmol/L (3.5-5.1)
[2022-01-31 05:31] LABS: GLUCOSE,POINT OF CARE 116 MG/DL (70-110)
[2022-01-31 08:00] VITALS: BP 123/55
[2022-01-31] MEDS: PANTOPRAZOLE SODIUM 40 MG DR TABLET PO SCH (09:22)
[2022-01-31] MEDS: HEPARIN SODIUM,PORCINE 5,000 UNITS/ML VIAL SQ SCH ×2 (09:22→20:19)
[2022-01-31] MEDS: ETHYL ALCOHOL 62% ANTISEPTIC NASAL SANITIZER 0.6 ML AMPUL NASAL SCH ×2 (09:22→20:18)
[2022-01-31 12:00] VITALS: BP 138/58
[2022-01-31] MEDS: POTASSIUM CHL 10 MEQ/WATER 50 ML IV SCH ×2 (12:02→13:13)
[2022-01-31 13:31] LABS: GLUCOSE,POINT OF CARE 163 MG/DL (70-110)
[2022-01-31] MEDS: SODIUM CHLORIDE 3% 500 ML IV SCH (14:23)
[2022-01-31 16:00] VITALS: BP 140/76
[2022-01-31 16:21] LABS: C.DIFF GDH ANTIGEN, Stool Negative (Negative)
[2022-01-31 16:22] LABS: C.DIFF TOXINS A&B, Stool Negative (Negative)
[2022-01-31 17:56] LABS: GLUCOSE,POINT OF CARE 150 MG/DL (70-110)
[2022-01-31 19:17] LABS: CALCIUM, TOTAL 7.2 mg/dL (8.8-10.5); CREATININE 4.41 mg/dL (0.60-1.30); POTASSIUM 3.8 mmol/L (3.5-5.1)
[2022-01-31 19:21] LABS: MAGNESIUM 2.6 mg/dL (1.80-2.40); PHOSPHORUS 4.8 mg/dL (2.5-4.9)
[2022-01-31 20:00] VITALS: BP 140/54
[2022-01-31] MEDS: MEROPENEM 500 MG in SODIUM CHLORIDE 0.9% 50 ML IV SCH (20:17)
[2022-02-01] VITALS: BP 138/52
[2022-02-01 02:31] LABS: GLUCOSE,POINT OF CARE 136 MG/DL (70-110)
[2022-02-01 04:00] VITALS: BP 122/72
[2022-02-01 05:28] LABS: BASOPHILS % (AUTO) 0.9 % (0.0-2.0); EOSINOPHILS % (AUTO) 8.8 % (1.0-6.0); HEMATOCRIT 22.7 % (36-46); HEMOGLOBIN 7.6 g/dL (12.0-16.0); LYMPHOCYTES # (AUTO) 0.7 K/uL (1.0-4.8); LYMPHOCYTES % (AUTO) 24.8 % (22.0-44.0); MEAN CORPUSCULAR HEMOGLOBIN 31.2 pg (26.0-34.0); MEAN CORPUSCULAR HGB CONC 33.5 G/dL (31.0-37.0); MEAN CORPUSCULAR VOLUME 93 fL (80-100); MONOCYTES # (AUTO) 0.4 K/uL (0.1-1.0); MONOCYTES % (AUTO) 12.6 % (2.0-9.0); NEUTROPHILS # (AUTO) 1.5 K/uL (1.8-7.7); NEUTROPHILS % (AUTO) 52.9 % (40.0-70.0); PLATELET COUNT (AUTO) 91 K/uL (150-450); RED BLOOD CELL COUNT(AUTO) 2.44 MIL/uL (4.00-5.20); RED CELL DISTRIBUTION WIDTH 18.6 % (11.5-14.5)
[2022-02-01 05:39] LABS: ALBUMIN 1.5 g/dL (3.4-5.0); BILIRUBIN,TOTAL 0.4 mg/dL (0.1-1.0); CALCIUM, TOTAL 7.3 mg/dL (8.8-10.5); CREATININE 4.39 mg/dL (0.60-1.30); MAGNESIUM 2.5 mg/dL (1.80-2.40); PHOSPHORUS 4.8 mg/dL (2.5-4.9); POTASSIUM 3.6 mmol/L (3.5-5.1); TOTAL PROTEIN, SERUM 5.8 g/dL (6.4-8.2)
[2022-02-01 08:00] VITALS: BP 148/57
[2022-02-01] MEDS: PANTOPRAZOLE SODIUM 40 MG DR TABLET PO SCH (09:18)
[2022-02-01] MEDS: HEPARIN SODIUM,PORCINE 5,000 UNITS/ML VIAL SQ SCH ×2 (09:18→20:06)
[2022-02-01] MEDS: ETHYL ALCOHOL 62% ANTISEPTIC NASAL SANITIZER 0.6 ML AMPUL NASAL SCH ×2 (09:18→20:06)
[2022-02-01 09:21] LABS: GLUCOSE,POINT OF CARE 112 MG/DL (70-110)
[2022-02-01 10:01] LABS: GLUCOSE,POINT OF CARE 102 MG/DL (70-110)
[2022-02-01 12:00] VITALS: BP 150/70
[2022-02-01 14:16] LABS: GLUCOSE,POINT OF CARE 154 MG/DL (70-110)
[2022-02-01 16:00] VITALS: BP 118/66
[2022-02-01] MEDS: LACTOBACILLUS ACIDOPHILUS/BULGARICUS TABLET PO SCH ×2 (16:16→20:06)
[2022-02-01 18:31] LABS: GLUCOSE,POINT OF CARE 151 MG/DL (70-110)
[2022-02-01 20:00] VITALS: BP 132/65
[2022-02-01] MEDS: MEROPENEM 500 MG in SODIUM CHLORIDE 0.9% 50 ML IV SCH (20:06)
[2022-02-01 20:46] LABS: GLUCOSE,POINT OF CARE 167 MG/DL (70-110)
[2022-02-01] MEDS: INSULIN LISPRO 100 UNITS/ML SQ PRN (20:56)
[2022-02-02] VITALS: BP 95/46
[2022-02-02 04:00] VITALS: BP 105/48
[2022-02-02 06:24] LABS: ALBUMIN 1.5 g/dL (3.4-5.0); BILIRUBIN,TOTAL 0.3 mg/dL (0.1-1.0); CALCIUM, TOTAL 7.5 mg/dL (8.8-10.5); CREATININE 4.15 mg/dL (0.60-1.30); POTASSIUM 3.3 mmol/L (3.5-5.1); TOTAL PROTEIN, SERUM 5.8 g/dL (6.4-8.2)
[2022-02-02 07:26] LABS: GLUCOSE,POINT OF CARE 89 MG/DL (70-110)
[2022-02-02 08:00] VITALS: BP 117/62
[2022-02-02] MEDS: ETHYL ALCOHOL 62% ANTISEPTIC NASAL SANITIZER 0.6 ML AMPUL NASAL SCH ×2 (08:47→20:12)
[2022-02-02] MEDS: FOLIC ACID/VIT B COMPLEX AND C TABLET PO SCH (08:47)
[2022-02-02] MEDS: PANTOPRAZOLE SODIUM 40 MG DR TABLET PO SCH (08:48)
[2022-02-02] MEDS: THIAMINE 100 MG TABLET PO SCH (08:48)
[2022-02-02] MEDS: LACTOBACILLUS ACIDOPHILUS/BULGARICUS TABLET PO SCH ×3 (08:49→20:11)
[2022-02-02] MEDS: HEPARIN SODIUM,PORCINE 5,000 UNITS/ML VIAL SQ SCH ×2 (08:49→20:11)
[2022-02-02] MEDS ORDERED: POTASSIUM CHLORIDE 10% 40 MEQ/30 ML LIQUID UDCUP PO ONE (09:30)
[2022-02-02] MEDS ORDERED: EPOETIN ALFA 10,000 UNITS/ML VIAL SQ ONE (10:00)
[2022-02-02 12:00] VITALS: BP 117/62
[2022-02-02 16:00] VITALS: BP 117/62
[2022-02-02 20:00] VITALS: BP 136/52
[2022-02-02] MEDS: MEROPENEM 500 MG in SODIUM CHLORIDE 0.9% 50 ML IV SCH (20:11)
[2022-02-02 21:06] LABS: GLUCOSE,POINT OF CARE 123 MG/DL (70-110)
[2022-02-03] VITALS (8 sets, daily range): BP systolic 94–139; BP diastolic 45–66
[2022-02-03 03:31] LABS: GLUCOSE,POINT OF CARE 141 MG/DL (70-110)
[2022-02-03 03:31] LABS: GLUCOSE,POINT OF CARE 96 MG/DL (70-110)
[2022-02-03 05:38] LABS: ALBUMIN 1.5 g/dL (3.4-5.0); BILIRUBIN,TOTAL 0.3 mg/dL (0.1-1.0); CALCIUM, TOTAL 7.8 mg/dL (8.8-10.5); CREATININE 3.7 mg/dL (0.60-1.30); POTASSIUM 3.7 mmol/L (3.5-5.1); TOTAL PROTEIN, SERUM 5.7 g/dL (6.4-8.2)
[2022-02-03 06:47] LABS: GLUCOSE,POINT OF CARE 97 MG/DL (70-110)
[2022-02-03] MEDS: ETHYL ALCOHOL 62% ANTISEPTIC NASAL SANITIZER 0.6 ML AMPUL NASAL SCH ×2 (08:35→20:13)
[2022-02-03] MEDS: HEPARIN SODIUM,PORCINE 5,000 UNITS/ML VIAL SQ SCH ×3 (08:36→21:00)
[2022-02-03] MEDS: THIAMINE 100 MG TABLET PO SCH (08:36)
[2022-02-03] MEDS: LACTOBACILLUS ACIDOPHILUS/BULGARICUS TABLET PO SCH ×3 (08:36→20:47)
[2022-02-03] MEDS: PANTOPRAZOLE SODIUM 40 MG DR TABLET PO SCH (08:36)
[2022-02-03] MEDS: FOLIC ACID/VIT B COMPLEX AND C TABLET PO SCH (08:36)
[2022-02-03 09:37] LABS: BASOPHILS % (AUTO) 0.9 % (0.0-2.0); EOSINOPHILS % (AUTO) 8.5 % (1.0-6.0); HEMATOCRIT 24.6 % (36-46); LYMPHOCYTES # (AUTO) 1.2 K/uL (1.0-4.8); LYMPHOCYTES % (AUTO) 27.2 % (22.0-44.0); MEAN CORPUSCULAR HEMOGLOBIN 30.4 pg (26.0-34.0); MEAN CORPUSCULAR HGB CONC 32.5 G/dL (31.0-37.0); MEAN CORPUSCULAR VOLUME 94 fL (80-100); MONOCYTES # (AUTO) 0.4 K/uL (0.1-1.0); MONOCYTES % (AUTO) 8.7 % (2.0-9.0); NEUTROPHILS # (AUTO) 2.3 K/uL (1.8-7.7); NEUTROPHILS % (AUTO) 54.7 % (40.0-70.0); PLATELET COUNT (AUTO) 107 K/uL (150-450); RED BLOOD CELL COUNT(AUTO) 2.63 MIL/uL (4.00-5.20)
[2022-02-03] MEDS: INSULIN LISPRO 100 UNITS/ML SQ PRN (17:11)
[2022-02-03 17:21] LABS: GLUCOSE,POINT OF CARE 135 MG/DL (70-110)
[2022-02-03] MEDS ORDERED: SODIUM CHLORIDE 0.9% 500 ML IV ONE (19:58)
[2022-02-03] MEDS: MEROPENEM 500 MG in SODIUM CHLORIDE 0.9% 50 ML IV SCH (20:13)
[2022-02-03 20:46] LABS: GLUCOSE,POINT OF CARE 161 MG/DL (70-110)
[2022-02-03 22:02] LABS: GLUCOMETER DEV NAME(LOC) 5S.2B; GLUCOSE,POINT OF CARE 105 MG/DL (70-110)
[2022-02-04 03:40] VITALS: BP 110/54
[2022-02-04 06:20] LABS: CALCIUM, TOTAL 7.9 mg/dL (8.8-10.5); CREATININE 3.25 mg/dL (0.60-1.30); MAGNESIUM 1.9 mg/dL (1.80-2.40); PHOSPHORUS 3.9 mg/dL (2.5-4.9); POTASSIUM 3.5 mmol/L (3.5-5.1)
[2022-02-04 07:24] VITALS: BP 117/55
[2022-02-04] MEDS: FOLIC ACID/VIT B COMPLEX AND C TABLET PO SCH (09:03)
[2022-02-04] MEDS: PANTOPRAZOLE SODIUM 40 MG DR TABLET PO SCH (09:03)
[2022-02-04] MEDS: ETHYL ALCOHOL 62% ANTISEPTIC NASAL SANITIZER 0.6 ML AMPUL NASAL SCH ×2 (09:03→21:14)
[2022-02-04] MEDS: THIAMINE 100 MG TABLET PO SCH (09:03)
[2022-02-04] MEDS: LACTOBACILLUS ACIDOPHILUS/BULGARICUS TABLET PO SCH ×3 (09:03→21:14)
[2022-02-04] MEDS: HEPARIN SODIUM,PORCINE 5,000 UNITS/ML VIAL SQ SCH ×2 (09:04→21:14)
[2022-02-04 11:52] VITALS: BP 109/48
[2022-02-04] MEDS: INSULIN LISPRO 100 UNITS/ML SQ PRN ×2 (11:53→17:32)
[2022-02-04] MEDS: SODIUM BICARBONATE 650 MG TABLET PO SCH (15:09)
[2022-02-04 15:23] VITALS: BP 110/50
[2022-02-04 19:12] VITALS: BP 109/82
[2022-02-04 19:41] LABS: GLUCOMETER DEV NAME(LOC) 5S.1B; GLUCOSE,POINT OF CARE 102 MG/DL (70-110)
[2022-02-04 20:41] LABS: GLUCOMETER DEV NAME(LOC) 5S.2B; GLUCOSE,POINT OF CARE 145 MG/DL (70-110)
[2022-02-04 20:42] LABS: GLUCOMETER DEV NAME(LOC) 5S.2B; GLUCOSE,POINT OF CARE 149 MG/DL (70-110)
[2022-02-04] MEDS: MEROPENEM 500 MG in SODIUM CHLORIDE 0.9% 50 ML IV SCH (21:13)
[2022-02-04 23:35] VITALS: BP 112/61
[2022-02-05 05:49] VITALS: BP 129/68
[2022-02-05 06:27] LABS: CALCIUM, TOTAL 7.8 mg/dL (8.8-10.5); CREATININE 2.85 mg/dL (0.60-1.30); MAGNESIUM 1.9 mg/dL (1.80-2.40); PHOSPHORUS 3.2 mg/dL (2.5-4.9); POTASSIUM 3.4 mmol/L (3.5-5.1)
[2022-02-05 07:16] VITALS: BP 133/62
[2022-02-05] MEDS: HEPARIN SODIUM,PORCINE 5,000 UNITS/ML VIAL SQ SCH ×3 (09:00→21:46)
[2022-02-05] MEDS: LACTOBACILLUS ACIDOPHILUS/BULGARICUS TABLET PO SCH ×3 (09:00→21:46)
[2022-02-05] MEDS: FOLIC ACID/VIT B COMPLEX AND C TABLET PO SCH (09:02)
[2022-02-05] MEDS: SODIUM BICARBONATE 650 MG TABLET PO SCH (09:03)
[2022-02-05] MEDS: THIAMINE 100 MG TABLET PO SCH (09:03)
[2022-02-05] MEDS: PANTOPRAZOLE SODIUM 40 MG DR TABLET PO SCH (09:03)
[2022-02-05] MEDS: ETHYL ALCOHOL 62% ANTISEPTIC NASAL SANITIZER 0.6 ML AMPUL NASAL SCH ×2 (09:08→21:46)
[2022-02-05 11:03] VITALS: BP 128/69
[2022-02-05 11:16] LABS: GLUCOMETER DEV NAME(LOC) 5S.2B; GLUCOSE,POINT OF CARE 134 MG/DL (70-110)
[2022-02-05 12:18] VITALS: BP 108/50
[2022-02-05] MEDS: INSULIN LISPRO 100 UNITS/ML SQ PRN ×2 (12:37→21:44)
[2022-02-05 15:23] VITALS: BP 117/69
[2022-02-05 20:00] VITALS: BP 108/62
[2022-02-05 20:06] LABS: GLUCOMETER DEV NAME(LOC) 5S.1B; GLUCOSE,POINT OF CARE 175 MG/DL (70-110)
[2022-02-05] MEDS: MEROPENEM 500 MG in SODIUM CHLORIDE 0.9% 50 ML IV SCH (21:46)
[2022-02-06] VITALS (7 sets, daily range): BP systolic 107–126; BP diastolic 47–66
[2022-02-06] MEDS: FOLIC ACID/VIT B COMPLEX AND C TABLET PO SCH (08:11)
[2022-02-06] MEDS: PANTOPRAZOLE SODIUM 40 MG DR TABLET PO SCH (08:11)
[2022-02-06] MEDS: LACTOBACILLUS ACIDOPHILUS/BULGARICUS TABLET PO SCH ×3 (08:11→21:13)
[2022-02-06] MEDS: THIAMINE 100 MG TABLET PO SCH (08:11)
[2022-02-06] MEDS: SODIUM BICARBONATE 650 MG TABLET PO SCH (08:11)
[2022-02-06] MEDS: HEPARIN SODIUM,PORCINE 5,000 UNITS/ML VIAL SQ SCH ×2 (08:12→21:13)
[2022-02-06] MEDS: ETHYL ALCOHOL 62% ANTISEPTIC NASAL SANITIZER 0.6 ML AMPUL NASAL SCH ×2 (08:12→21:13)
[2022-02-06 11:56] LABS: GLUCOMETER DEV NAME(LOC) 5S.1B; GLUCOSE,POINT OF CARE 176 MG/DL (70-110)
[2022-02-06 12:32] LABS: CALCIUM, TOTAL 8.3 mg/dL (8.8-10.5); CREATININE 2.51 mg/dL (0.60-1.30); POTASSIUM 3.5 mmol/L (3.5-5.1)
[2022-02-06] MEDS: INSULIN LISPRO 100 UNITS/ML SQ PRN ×3 (13:05→21:19)
[2022-02-06 13:52] LABS: BASOPHILS % (AUTO) 0.6 % (0.0-2.0); EOSINOPHILS % (AUTO) 5.7 % (1.0-6.0); LYMPHOCYTES # (AUTO) 2.4 K/uL (1.0-4.8); LYMPHOCYTES % (AUTO) 34.7 % (22.0-44.0); MEAN CORPUSCULAR HEMOGLOBIN 30.7 pg (26.0-34.0); MEAN CORPUSCULAR HGB CONC 32.3 G/dL (31.0-37.0); MEAN CORPUSCULAR VOLUME 95 fL (80-100); MONOCYTES # (AUTO) 0.7 K/uL (0.1-1.0); MONOCYTES % (AUTO) 9.9 % (2.0-9.0); NEUTROPHILS # (AUTO) 3.4 K/uL (1.8-7.7); NEUTROPHILS % (AUTO) 49.1 % (40.0-70.0); PLATELET COUNT (AUTO) 154 K/uL (150-450); RED BLOOD CELL COUNT(AUTO) 2.93 MIL/uL (4.00-5.20); RED CELL DISTRIBUTION WIDTH 19.8 % (11.5-14.5)
[2022-02-06 17:06] LABS: GLUCOMETER DEV NAME(LOC) 5N.1C; GLUCOSE,POINT OF CARE 95 MG/DL (70-110)
[2022-02-06 18:11] LABS: GLUCOMETER DEV NAME(LOC) 5N.1C; GLUCOSE,POINT OF CARE 239 MG/DL (70-110)
[2022-02-06 22:56] LABS: GLUCOMETER DEV NAME(LOC) 5S.1B; GLUCOSE,POINT OF CARE 147 MG/DL (70-110)
[2022-02-07 04:38] VITALS: BP 121/55
[2022-02-07 06:14] LABS: CALCIUM, TOTAL 8.2 mg/dL (8.8-10.5); CREATININE 2.37 mg/dL (0.60-1.30); MAGNESIUM 1.6 mg/dL (1.80-2.40); PHOSPHORUS 2.8 mg/dL (2.5-4.9)
[2022-02-07 07:45] VITALS: BP 116/58
[2022-02-07] MEDS ORDERED: POTASSIUM CHLORIDE 20 MEQ ER TABLET PO ONE (08:00)
[2022-02-07] MEDS ORDERED: POTASSIUM CHL 10 MEQ/WATER 50 ML IV ONE (08:00)
[2022-02-07] MEDS: THIAMINE 100 MG TABLET PO SCH (08:28)
[2022-02-07] MEDS: HEPARIN SODIUM,PORCINE 5,000 UNITS/ML VIAL SQ SCH ×2 (08:29→20:20)
[2022-02-07] MEDS: PANTOPRAZOLE SODIUM 40 MG DR TABLET PO SCH (08:29)
[2022-02-07] MEDS: LACTOBACILLUS ACIDOPHILUS/BULGARICUS TABLET PO SCH ×3 (08:29→20:20)
[2022-02-07] MEDS: FOLIC ACID/VIT B COMPLEX AND C TABLET PO SCH (08:29)
[2022-02-07] MEDS ORDERED: MAGNESIUM SULFATE 2 GM/WATER 50 ML IV ONE (08:45)
[2022-02-07] MEDS: ETHYL ALCOHOL 62% ANTISEPTIC NASAL SANITIZER 0.6 ML AMPUL NASAL SCH ×2 (09:43→20:20)
[2022-02-07 10:46] VITALS: BP 118/60
[2022-02-07] MEDS: INSULIN LISPRO 100 UNITS/ML SQ PRN ×2 (13:58→20:21)
[2022-02-07 16:04] VITALS: BP 120/66
[2022-02-07 20:18] VITALS: BP 113/61
[2022-02-08 00:22] VITALS: BP 117/59
[2022-02-08 05:29] VITALS: BP 112/55
[2022-02-08 05:51] LABS: CREATININE 2.25 mg/dL (0.60-1.30); MAGNESIUM 1.9 mg/dL (1.80-2.40); PHOSPHORUS 3.1 mg/dL (2.5-4.9); POTASSIUM 3.3 mmol/L (3.5-5.1)
[2022-02-08 07:26] VITALS: BP 137/65
[2022-02-08] MEDS ORDERED: POTASSIUM CHLORIDE 20 MEQ ER TABLET PO ONE (08:00)
[2022-02-08] MEDS: PANTOPRAZOLE SODIUM 40 MG DR TABLET PO SCH (09:05)
[2022-02-08] MEDS: LACTOBACILLUS ACIDOPHILUS/BULGARICUS TABLET PO SCH ×3 (09:05→20:06)
[2022-02-08] MEDS: FOLIC ACID/VIT B COMPLEX AND C TABLET PO SCH (09:05)
[2022-02-08] MEDS: HEPARIN SODIUM,PORCINE 5,000 UNITS/ML VIAL SQ SCH ×2 (09:05→20:06)
[2022-02-08] MEDS: THIAMINE 100 MG TABLET PO SCH (09:05)
[2022-02-08] MEDS: ETHYL ALCOHOL 62% ANTISEPTIC NASAL SANITIZER 0.6 ML AMPUL NASAL SCH ×2 (09:06→20:06)
[2022-02-08 11:11] VITALS: BP 120/67
[2022-02-08] MEDS: INSULIN LISPRO 100 UNITS/ML SQ PRN ×3 (11:57→20:05)
[2022-02-08 15:44] VITALS: BP 132/68
[2022-02-08 20:06] LABS: GLUCOMETER DEV NAME(LOC) 5S.1B; GLUCOSE,POINT OF CARE 132 MG/DL (70-110)
[2022-02-08 20:07] LABS: GLUCOMETER DEV NAME(LOC) 5S.1B; GLUCOSE,POINT OF CARE 172 MG/DL (70-110)
[2022-02-08 20:07] LABS: GLUCOMETER DEV NAME(LOC) 5S.1B; GLUCOSE,POINT OF CARE 139 MG/DL (70-110)
[2022-02-08 20:11] LABS: GLUCOMETER DEV NAME(LOC) 5S.1B; GLUCOSE,POINT OF CARE 165 MG/DL (70-110)
[2022-02-08 20:45] VITALS: BP 109/55
[2022-02-09] VITALS (7 sets, daily range): BP systolic 105–135; BP diastolic 53–73
[2022-02-09] MEDS ORDERED: SODIUM CHLORIDE 0.9% 1,000 ML IV ONE (07:00)
[2022-02-09] MEDS: THIAMINE 100 MG TABLET PO SCH (09:00)
[2022-02-09] MEDS: FOLIC ACID/VIT B COMPLEX AND C TABLET PO SCH (09:00)
[2022-02-09] MEDS: ETHYL ALCOHOL 62% ANTISEPTIC NASAL SANITIZER 0.6 ML AMPUL NASAL SCH ×2 (09:00→20:27)
[2022-02-09] MEDS: PANTOPRAZOLE SODIUM 40 MG DR TABLET PO SCH (09:00)
[2022-02-09] MEDS: HEPARIN SODIUM,PORCINE 5,000 UNITS/ML VIAL SQ SCH ×2 (09:00→20:28)
[2022-02-09] MEDS: LACTOBACILLUS ACIDOPHILUS/BULGARICUS TABLET PO SCH ×3 (09:00→23:43)
[2022-02-09 09:01] LABS: GLUCOMETER DEV NAME(LOC) 5S.1B; GLUCOSE,POINT OF CARE 135 MG/DL (70-110)
[2022-02-09 10:17] LABS: CALCIUM, TOTAL 7.9 mg/dL (8.8-10.5); CREATININE 1.98 mg/dL (0.60-1.30); POTASSIUM 3.7 mmol/L (3.5-5.1)
[2022-02-09 10:20] LABS: MAGNESIUM 1.8 mg/dL (1.80-2.40)
[2022-02-09 12:17] LABS: GLUCOMETER DEV NAME(LOC) 5S.2B; GLUCOSE,POINT OF CARE 179 MG/DL (70-110)
[2022-02-09 12:17] LABS: GLUCOMETER DEV NAME(LOC) 5S.2B; GLUCOSE,POINT OF CARE 222 MG/DL (70-110)
[2022-02-09] MEDS: INSULIN LISPRO 100 UNITS/ML SQ PRN ×2 (17:36→20:27)
[2022-02-09 20:41] LABS: GLUCOMETER DEV NAME(LOC) 5S.2B; GLUCOSE,POINT OF CARE 183 MG/DL (70-110)
[2022-02-10 04:53] VITALS: BP 124/64
[2022-02-10] MEDS ORDERED: MIDAZOLAM HCL 2 MG/2 ML VIAL IVP ONE (06:38)
[2022-02-10] MEDS ORDERED: PROPOFOL 1% 20 ML VIAL IVP ONE (06:38)
[2022-02-10] MEDS ORDERED: FentaNYL CITRATE PF 100 MCG/2 ML VIAL IVP ONE (06:38)
[2022-02-10] MEDS ORDERED: ROCURONIUM BROMIDE 10 MG/ML 5 ML VIAL IVP ONE (06:38)
[2022-02-10] MEDS ORDERED: METOCLOPRAMIDE HCL 5 MG/ML 2 ML VIAL IVP ONE (06:38)
[2022-02-10 08:05] VITALS: BP 120/56
[2022-02-10] MEDS: FOLIC ACID/VIT B COMPLEX AND C TABLET PO SCH (09:07)
[2022-02-10] MEDS: PANTOPRAZOLE SODIUM 40 MG DR TABLET PO SCH (09:07)
[2022-02-10] MEDS: LACTOBACILLUS ACIDOPHILUS/BULGARICUS TABLET PO SCH ×3 (09:07→20:32)
[2022-02-10] MEDS: HEPARIN SODIUM,PORCINE 5,000 UNITS/ML VIAL SQ SCH ×2 (09:07→20:32)
[2022-02-10] MEDS: THIAMINE 100 MG TABLET PO SCH (09:07)
[2022-02-10 12:00] VITALS: BP 126/63
[2022-02-10] MEDS: ETHYL ALCOHOL 62% ANTISEPTIC NASAL SANITIZER 0.6 ML AMPUL NASAL SCH ×2 (13:25→20:32)
[2022-02-10 15:45] VITALS: BP 125/63
[2022-02-10] MEDS: INSULIN LISPRO 100 UNITS/ML SQ PRN ×2 (17:39→20:33)
[2022-02-10 17:56] LABS: GLUCOMETER DEV NAME(LOC) 5S.2B; GLUCOSE,POINT OF CARE 183 MG/DL (70-110)
[2022-02-10 19:31] VITALS: BP 126/70
[2022-02-11 00:01] VITALS: BP 119/63
[2022-02-11 04:25] VITALS: BP 137/68
[2022-02-11 06:22] LABS: GLUCOMETER DEV NAME(LOC) 5S.1B; GLUCOSE,POINT OF CARE 158 MG/DL (70-110)
[2022-02-11] MEDS: THIAMINE 100 MG TABLET PO SCH (08:35)
[2022-02-11] MEDS: LACTOBACILLUS ACIDOPHILUS/BULGARICUS TABLET PO SCH ×3 (08:35→20:04)
[2022-02-11] MEDS: PANTOPRAZOLE SODIUM 40 MG DR TABLET PO SCH (08:35)
[2022-02-11] MEDS: HEPARIN SODIUM,PORCINE 5,000 UNITS/ML VIAL SQ SCH ×2 (08:35→20:04)
[2022-02-11] MEDS: FOLIC ACID/VIT B COMPLEX AND C TABLET PO SCH (08:35)
[2022-02-11] MEDS: ETHYL ALCOHOL 62% ANTISEPTIC NASAL SANITIZER 0.6 ML AMPUL NASAL SCH ×2 (08:36→20:04)
[2022-02-11] MEDS: INSULIN LISPRO 100 UNITS/ML SQ PRN ×3 (12:12→20:08)
[2022-02-11 17:27] LABS: BASOPHILS % (AUTO) 0.9 % (0.0-2.0); HEMATOCRIT 25.3 % (36-46); HEMOGLOBIN 8.2 g/dL (12.0-16.0); LYMPHOCYTES # (AUTO) 1.2 K/uL (1.0-4.8); LYMPHOCYTES % (AUTO) 27.7 % (22.0-44.0); MEAN CORPUSCULAR HEMOGLOBIN 31.5 pg (26.0-34.0); MEAN CORPUSCULAR HGB CONC 32.5 G/dL (31.0-37.0); MEAN CORPUSCULAR VOLUME 97 fL (80-100); MONOCYTES # (AUTO) 0.3 K/uL (0.1-1.0); MONOCYTES % (AUTO) 6.3 % (2.0-9.0); NEUTROPHILS # (AUTO) 2.7 K/uL (1.8-7.7); NEUTROPHILS % (AUTO) 62.1 % (40.0-70.0); PLATELET COUNT (AUTO) 116 K/uL (150-450); RED BLOOD CELL COUNT(AUTO) 2.61 MIL/uL (4.00-5.20); RED CELL DISTRIBUTION WIDTH 20.9 % (11.5-14.5)
[2022-02-11 17:39] LABS: CALCIUM, TOTAL 8.2 mg/dL (8.8-10.5); CREATININE 1.8 mg/dL (0.60-1.30); POTASSIUM 3.9 mmol/L (3.5-5.1)
[2022-02-11 17:44] LABS: ALBUMIN 1.8 g/dL (3.4-5.0); BILIRUBIN,TOTAL 0.3 mg/dL (0.1-1.0); TOTAL PROTEIN, SERUM 6.6 g/dL (6.4-8.2)
[2022-02-11 20:11] VITALS: BP 112/55
[2022-02-12 00:01] VITALS: BP 113/77
[2022-02-12 04:12] VITALS: BP 121/65
[2022-02-12 07:46] LABS: GLUCOMETER DEV NAME(LOC) 5S.1B; GLUCOSE,POINT OF CARE 106 MG/DL (70-110)
[2022-02-12 07:46] LABS: GLUCOMETER DEV NAME(LOC) 5S.1B; GLUCOSE,POINT OF CARE 165 MG/DL (70-110)
[2022-02-12] MEDS: LACTOBACILLUS ACIDOPHILUS/BULGARICUS TABLET PO SCH ×2 (08:12→16:28)
[2022-02-12] MEDS: ETHYL ALCOHOL 62% ANTISEPTIC NASAL SANITIZER 0.6 ML AMPUL NASAL SCH (08:12)
[2022-02-12] MEDS: PANTOPRAZOLE SODIUM 40 MG DR TABLET PO SCH (08:13)
[2022-02-12] MEDS: HEPARIN SODIUM,PORCINE 5,000 UNITS/ML VIAL SQ SCH (08:13)
[2022-02-12] MEDS: THIAMINE 100 MG TABLET PO SCH (08:13)
[2022-02-12] MEDS: FOLIC ACID/VIT B COMPLEX AND C TABLET PO SCH (08:13)
[2022-02-12 08:16] VITALS: BP 127/56
[2022-02-12 11:52] VITALS: BP 117/77
[2022-02-12] MEDS: INSULIN LISPRO 100 UNITS/ML SQ PRN (11:58)
[2022-02-12 15:19] VITALS: BP 121/54
[2022-02-12] MEDS ORDERED: MULT-660 PO (15:37)
[2022-02-12] MEDS ORDERED: PANT-31 PO (15:37)
[2022-02-12] MEDS ORDERED: SITA50 PO (15:37)
[2022-02-12] MEDS ORDERED: ZINC220C14 PO (15:37)
[2022-02-12] MEDS ORDERED: ASCO500 PO (15:37)
[2022-02-12] MEDS ORDERED: SitaGLIPtin PHOSPHATE 50 MG TABLET PO SCH (21:00)
== END 2022-02-12 18:20 | disposition home health service (06) | DRG 70 ==
LOC: EMS 14:39 → UNDOADMIN 22:34 → 5S 22:34 → ICU 01-28 06:25 → 5S 02-03 18:05
PROVIDERS: ADMIT Internal Medicine; ATTEND Internal Medicine
PROC: 05HM33Z Insertion of Infusion Device into Right Internal Jugular Vein, Percutaneous Approach (ICD-10-PCS; principal; 2022-01-28)
PROC: B543ZZA Ultrasonography of Right Jugular Veins, Guidance (ICD-10-PCS; 2022-01-28)
PROC: 5A1D70Z Performance of Urinary Filtration, Intermittent, Less than 6 Hours Per Day (ICD-10-PCS; 2022-01-28)
PROC: 0Y9D0ZZ Drainage of Left Upper Leg, Open Approach (ICD-10-PCS; 2022-02-09)
DX: G93.41 Metabolic encephalopathy (principal); E43 Unspecified severe protein-calorie malnutrition; N17.0 Acute kidney failure with tubular necrosis; N18.6 End stage renal disease; L02.416 Cutaneous abscess of left lower limb; N39.0 Urinary tract infection, site not specified; R64 Cachexia; I12.0 Hypertensive chronic kidney disease with stage 5 chronic kidney disease or end stage renal disease; E87.1 Hypo-osmolality and hyponatremia; E87.20 Acidosis, unspecified; Z68.1 Body mass index [BMI] 19.9 or less, adult; L03.116 Cellulitis of left lower limb; E11.649 Type 2 diabetes mellitus with hypoglycemia without coma; E87.6 Hypokalemia; R62.7 Adult failure to thrive; E11.65 Type 2 diabetes mellitus with hyperglycemia; D63.1 Anemia in chronic kidney disease; E11.22 Type 2 diabetes mellitus with diabetic chronic kidney disease; E86.0 Dehydration; E83.42 Hypomagnesemia; K21.9 Gastro-esophageal reflux disease without esophagitis; D69.6 Thrombocytopenia, unspecified; E03.9 Hypothyroidism, unspecified; K52.9 Noninfective gastroenteritis and colitis, unspecified; K74.60 Unspecified cirrhosis of liver; R29.810 Facial weakness; Z79.4 Long term (current) use of insulin; Z83.3 Family history of diabetes mellitus; Z99.2 Dependence on renal dialysis
CPT/HCPCS: 51702; 70496; 70498; 71045; 73718; 74176; 76700; 80048; 80053; 81001; 81002; 82570; 82805; 82948; 82962; 83605; 83690; 83735; 83880; 84100; 84300; 84484; 85025; 85610; 85730; 86850; 86900; 86901; 87070; 87081; 87086; 87101; 87186; 87205; 87324; 87340; 87449; 90686; 90732; 90935; 92610; 93005; 97110; 97116; 97162; 97530; 99291; G0378; J0885; J1644; J2185; J2250; J2405; J2704; J2765; J3010; J3475; J3480; J3490; J7030; J7040; J7050; J7060; Q9967; 36415-L1; 36415-TC; 70450; 70450-TC; G0008; X7700; Z7610